=== PATIENT | female | born 1930 | race Caucasian/White ===

== ENCOUNTER 2017-12-25 13:00 | Inpatient (IN) | payer MEDICARE, BC ==
[2017-12-25] MEDS ORDERED: RX INFO: IV CONTRAST WAS GIVEN 1 EACH MISC MISCELLANE PRN (13:27)
[2017-12-25] MEDS ORDERED: SODIUM CHLORIDE 0.9% 500 ML IV STA (13:27)
--- NOTE | 2017-12-25 13:28 | ED ---
Abdominal Pain HPI - General Chief Complaint: Abdominal Pain Stated Complaint: constipation Time Seen by Provider: 12/25/17 13:11 Source: patient Mode of arrival: ambulatory Limitations: no limitations - History of Present Illness Initial Comments: Patient complains of abdominal pain. The pain is all over her belly. The pain began 3-1/2 days ago. It is getting worse. She feels like she can't tolerate oral intake. She has decreased bowel movements. She had a recent UTI. She is not currently taking antibodies. She has no back or chest pain. She has no shortness of breath. She has no headache. She has no palpitations. She has used a fleets enema, which did not really change her symptoms. - Related Data Home Medications Medication Instructions Recorded Confirmed Aspirin 81 mg PO DAILY 12/15/13 12/25/17 Hydrochlorothiazide [Hydrodiuril] 25 mg PO DAILY 12/15/13 12/25/17 Losartan Potassium [Cozaar] 100 mg PO DAILY 12/15/13 12/25/17 Metoprolol Succinate [Toprol XL] 50 mg PO AC-BRKFST 12/15/13 12/25/17 Simvastatin [Zocor] 40 mg PO HS 12/15/13 12/25/17 Temazepam [Restoril] 30 mg PO HS 12/15/13 12/25/17 Docusate [Colace] 100 mg PO HS 12/25/17 12/25/17 Vit C/E/Zn/Coppr/Lutein/Zeaxan 1 cap PO BID 12/25/17 12/25/17 [Preservision Areds 2 Softgel] Allergies Allergy/AdvReac Type Severity Reaction Status Date / Time dexamethasone [From Decadron] Allergy Itching Verified 12/25/17 13:07 dexamethasone sod phosphate Allergy Itching Verified 12/25/17 13:07 [From Decadron] diclofenac [From Voltaren] Allergy Unknown Verified 12/25/17 13:22 hydroxyzine HCl [From Atarax] Allergy Itching Verified 12/25/17 13:07 ibuprofen [From Motrin] Allergy Itching Verified 12/25/17 13:07 lisinopril Allergy Itching Verified 12/25/17 13:07 Sulfa (Sulfonamide Allergy Itching Verified 12/25/17 13:07 Antibiotics) nitrofurantoin AdvReac "DOES NOT Verified 12/25/17 13:22 WORK" Review of Systems ROS Statement: Those systems with pertinent positive or pertinent negative responses have been documented in the HPI. ROS Other: All systems not noted in ROS Statement are negative. Past Medical History Past Medical History: CVA/TIA, Eye Disorder, Hyperlipidemia, Hypertension, Musculoskeletal Disorder, Osteoarthritis (OA) Additional Past Medical History / Comment(s): macular degeneration, wet left, dry right, scoliosis, arthritis, Tia 1988 History of Any Multi-Drug Resistant Organisms: None Reported Past Surgical History: Back Surgery, Joint Replacement Additional Past Surgical History / Comment(s): Total left knee, partial right knee, right great toe implant, multiple cervical and lumbar fusions, kyphoplasty Past Anesthesia/Blood Transfusion Reactions: No Reported Reaction Past Psychological History: Anxiety Smoking Status: Never smoker Past Alcohol Use History: None Reported Past Drug Use History: None Reported General Exam Limitations: no limitations General appearance: alert, in no apparent distress Head exam: Present: atraumatic, normocephalic, normal inspection Eye exam: Present: normal appearance, PERRL, EOMI. Absent: scleral icterus, conjunctival injection, periorbital swelling ENT exam: Present: normal exam, mucous membranes moist Neck exam: Present: normal inspection. Absent: tenderness, meningismus, lymphadenopathy Respiratory exam: Present: normal lung sounds bilaterally. Absent: respiratory distress, wheezes, rales, rhonchi, stridor Cardiovascular Exam: Present: regular rate, normal rhythm, normal heart sounds. Absent: systolic murmur, diastolic murmur, rubs, gallop, clicks GI/Abdominal exam: Present: soft, tenderness. Absent: distended, guarding, rebound, rigid Extremities exam: Present: normal inspection, full ROM, normal capillary refill. Absent: tenderness, pedal edema, joint swelling, calf tenderness Back exam: Present: normal inspection Neurological exam: Present: alert, oriented X3, CN II-XII intact Psychiatric exam: Present: normal affect, normal mood Skin exam: Present: warm, dry, intact, normal color. Absent: rash Course Vital Signs 12/25/17 12/25/17 13:03 14:59 Temperature 98 F Pulse Rate 69 65 Respiratory 18 17 Rate Blood Pressure 155/72 145/67 O2 Sat by Pulse 98 100 Oximetry Medical Decision Making - Medical Decision Making Patient states that she is not feeling well. Urinalysis is positive for infection. She has failed outpatient therapy. I will order IV antibiotics and patient will be admitted to the hospital. - Lab Data Result diagrams: 12/25/17 13:20 12/25/17 13:20 Lab Results 12/25/17 12/25/17 12/25/17 Range/Units 13:20 13:20 13:20 WBC 5.0 (3.8-10.6) k/uL RBC 3.99 (3.80-5.40) m/uL Hgb 12.6 (11.4-16.0) gm/dL Hct 36.5 (34.0-46.0) % MCV 91.5 (80.0-100.0) fL MCH 31.5 (25.0-35.0) pg MCHC 34.5 (31.0-37.0) g/dL RDW 12.4 (11.5-15.5) % Plt Count 227 (150-450) k/uL Neutrophils % 65 % Lymphocytes % 21 % Monocytes % 8 % Eosinophils % 2 % Basophils % 0 % Neutrophils # 3.2 (1.3-7.7) k/uL Lymphocytes # 1.1 (1.0-4.8) k/uL Monocytes # 0.4 (0-1.0) k/uL Eosinophils # 0.1 (0-0.7) k/uL Basophils # 0.0 (0-0.2) k/uL Sodium 134 L (137-145) mmol/L Potassium 4.4 (3.5-5.1) mmol/L Chloride 92 L (98-107) mmol/L Carbon Dioxide 29 (22-30) mmol/L Anion Gap 13 mmol/L BUN 35 H (7-17) mg/dL Creatinine 1.07 H (0.52-1.04) mg/dL Est GFR (CKD-EPI)AfAm 54 (>60 ml/min/1.73 sqM) Est GFR (CKD-EPI)NonAf 47 (>60 ml/min/1.73 sqM) Glucose 120 H (74-99) mg/dL Calcium 10.6 H (8.4-10.2) mg/dL Total Bilirubin 0.6 (0.2-1.3) mg/dL AST 34 (14-36) U/L ALT 40 (9-52) U/L Alkaline Phosphatase 94 (38-126) U/L Troponin I <0.012 (0.000-0.034) ng/mL Total Protein 7.1 (6.3-8.2) g/dL Albumin 4.3 (3.5-5.0) g/dL Amylase 132 H (30-110) U/L Lipase 407 H (23-300) U/L Urine Color Urine Appearance (Clear) Urine pH (5.0-8.0) Ur Specific [place] (1.001-1.035) Urine Protein (Negative) Urine Glucose (UA) (Negative) Urine Ketones (Negative) Urine Blood (Negative) Urine Nitrite (Negative) Urine Bilirubin (Negative) Urine Urobilinogen (<2.0) mg/dL Ur Leukocyte Esterase (Negative) Urine RBC (0-5) /hpf Urine WBC (0-5) /hpf Ur Squamous Epith Cells (0-4) /hpf Hyaline Casts (0-2) /lpf Urine Mucus (None) /hpf 12/25/17 Range/Units 13:20 WBC (3.8-10.6) k/uL RBC (3.80-5.40) m/uL Hgb (11.4-16.0) gm/dL Hct (34.0-46.0) % MCV (80.0-100.0) fL MCH (25.0-35.0) pg MCHC (31.0-37.0) g/dL RDW (11.5-15.5) % Plt Count (150-450) k/uL Neutrophils % % Lymphocytes % % Monocytes % % Eosinophils % % Basophils % % Neutrophils # (1.3-7.7) k/uL Lymphocytes # (1.0-4.8) k/uL Monocytes # (0-1.0) k/uL Eosinophils # (0-0.7) k/uL Basophils # (0-0.2) k/uL Sodium (137-145) mmol/L Potassium (3.5-5.1) mmol/L Chloride (98-107) mmol/L Carbon Dioxide (22-30) mmol/L Anion Gap mmol/L BUN (7-17) mg/dL Creatinine (0.52-1.04) mg/dL Est GFR (CKD-EPI)AfAm (>60 ml/min/1.73 sqM) Est GFR (CKD-EPI)NonAf (>60 ml/min/1.73 sqM) Glucose (74-99) mg/dL Calcium (8.4-10.2) mg/dL Total Bilirubin (0.2-1.3) mg/dL AST (14-36) U/L ALT (9-52) U/L Alkaline Phosphatase (38-126) U/L Troponin I (0.000-0.034) ng/mL Total Protein (6.3-8.2) g/dL Albumin (3.5-5.0) g/dL Amylase (30-110) U/L Lipase (23-300) U/L Urine Color Light Yellow Urine Appearance Clear (Clear) Urine pH 7.0 (5.0-8.0) Ur Specific [place] 1.008 (1.001-1.035) Urine Protein Negative (Negative) Urine Glucose (UA) Negative (Negative) Urine Ketones Negative (Negative) Urine Blood Negative (Negative) Urine Nitrite Negative (Negative) Urine Bilirubin Negative (Negative) Urine Urobilinogen <2.0 (<2.0) mg/dL Ur Leukocyte Esterase Moderate H (Negative) Urine RBC <1 (0-5) /hpf Urine WBC 4 (0-5) /hpf Ur Squamous Epith Cells <1 (0-4) /hpf Hyaline Casts 7 H (0-2) /lpf Urine Mucus Rare H (None) /hpf 12/25/17 15:43 Twelve-lead EKG shows ventricular rate 69 bpm, normal OH interval and QRS complexes, no ST elevation or depression, interpreted by me as normal sinus rhythm. Disposition Clinical Impression: UTI (urinary tract infection) Disposition: ADMITTED IP TO THIS HOSP Condition: Fair Is patient prescribed a controlled substance at d/c from ED?: No Referrals: Jessica Umanzor DO [Primary Care Provider] - 1-2 days Time of Disposition: 15:44
[2017-12-25 13:37] LABS: Basophils % (A) 0 %; Eosinophils # (A) 0.1 k/uL (0-0.7); Eosinophils % (A) 2 %; HCT 36.5 % (34.0-46.0); HGB 12.6 gm/dL (11.4-16.0); Lymphocytes # (A) 1.1 k/uL (1.0-4.8); Lymphocytes % (A) 21 %; MCH 31.5 pg (25.0-35.0); MCHC 34.5 g/dL (31.0-37.0); MCV 91.5 fL (80.0-100.0); Monocytes # (A) 0.4 k/uL (0-1.0); Monocytes % (A) 8 %; Neutrophils # (A) 3.2 k/uL (1.3-7.7); Neutrophils % (A) 65 %; Platelet Count 227 k/uL (150-450); RBC 3.99 m/uL (3.80-5.40); RDW 12.4 % (11.5-15.5)
[2017-12-25 13:46] LABS: Albumin 4.3 g/dL (3.5-5.0); Calcium 10.6 mg/dL (8.4-10.2); Potassium 4.4 mmol/L (3.5-5.1); Total Bilirubin 0.6 mg/dL (0.2-1.3); Total Protein 7.1 g/dL (6.3-8.2)
[2017-12-25 14:14] LABS: Appearance,Urine Clear (Clear); Bilirubin,Urine Negative (Negative); Blood,Urine Negative (Negative); Color,Urine Light Yellow; Glucose,Urine (UA) Negative (Negative); Hyaline Casts,Urine 7 /lpf (0-2); Ketones,Urine Negative (Negative); Leukocyte Esterase,Urine Moderate (Negative); Mucus,Urine Rare /hpf; Nitrite,Urine Negative (Negative); Protein,Urine Negative (Negative); RBC,Urine <1 /hpf (0-5); Specific Gravity,Urine 1.008 (1.001-1.035); Squamous Epithelial Cell,Urine <1 /hpf (0-4); Urobilinogen,Urine <2.0 mg/dL (<2.0); WBC,Urine 4 /hpf (0-5)
--- NOTE | 2017-12-25 14:30 | CT ---
EXAMINATION TYPE: CT abdomen pelvis wo con DATE OF EXAM: 12/25/2017 COMPARISON: 07/04/2016 HISTORY: c/o abdominal pain, bloating, constipation CT DLP: 686 mGycm Automated exposure control for dose reduction was used. TECHNIQUE: Helical acquisition of images was performed from the lung bases through the pelvis. FINDINGS: MISCELLANEOUS: Postop changes are noted to the lumbar spine and pelvis. Generative change of the spin e arthritic change of the hips. Lung bases are clear, there is no pleural or pericardial effusion. Pleural thickening along the left lung base suggestive findings suggestive of COPD and mild cardiomegaly with a trace amount of pericar dial fluid. The heart is enlarged. Calcification present at the aortic root, possible coronary artery calcification. There is a hiatal hernia. ABDOMEN: Lack of intravenous contrast may compromise sensitivity. There is no pneumoperitoneum, retro peritoneal adenopathy, or ascites. Aorta shows normal caliber. The liver, gallbladder, spleen , pancreas, adrenal glands are within normal limits, the left kidney s hows malrotation. Right kidney shows a cystic low-attenuation focus at the lower pole measuring 18 mm a cortical cyst i s stable from previous exam and appears 5 Hounsfield units compatible simple cyst. No hydronephrosis bilaterally. No ureteral calcification is evident. There is a calcification in the splenic hilum measuring only 5 mm which may be vascular or associated with the tail of the pancreas. PELVIS: There is no bowel obstruction. Urinary bladder is normal as seen. There are vascular calcific ations present. Uterus and adnexal structures are not seen. Diverticular change associated with the s igmoid colon. The appendix is not seen with certainty. IMPRESSION: 1. Nonspecific abdomen.
[2017-12-25] MEDS: cefTRIAXone IN SWFI 1,000 MG/10 ML SYRINGE IVP SCH (15:39)
[2017-12-25] MEDS ORDERED: ACETAMINOPHEN TAB 325 MG TAB PO PRN (16:24)
[2017-12-25] MEDS ORDERED: HYDROcodone/APAP 5-325MG 1 EACH TAB PO PRN (16:27)
--- NOTE | 2017-12-25 16:39 | P.HPIM ---
History of Present Illness H&P Date: 12/25/17 Chief Complaint: Abdominal pain 87-year-old female who has been struggling with urinary tract infection for the last 2 weeks, has been on 2 different courses of antibiotics presented to emergency department with worsening symptoms of nausea, abdominal bloating/ pressure and pain. She denied any vomiting. She stated that since Thursday she has not had any bowel movement and that she is constipated. She has used a fleets enema, which did not really change her symptoms. The pain is all over her belly. She has been feeling cold since he started having those symptoms. No fevers. No chest pain or shortness of breath. She feels like she can't tolerate oral intake, has no appetite. Of note patient fell in October, she had her head on the cement, the fall was mechanical secondary to stumbling and since the fall she has been having dizziness. No headache. She has no palpitations. Review of Systems 12 point review of system performed, negative except for HPI Past Medical History Past Medical History: CVA/TIA, Eye Disorder, Hyperlipidemia, Hypertension, Musculoskeletal Disorder, Osteoarthritis (OA) Additional Past Medical History / Comment(s): macular degeneration, wet left, dry right, scoliosis, arthritis, Tia 1987 History of Any Multi-Drug Resistant Organisms: None Reported Past Surgical History: Back Surgery, Joint Replacement Additional Past Surgical History / Comment(s): Total left knee, partial right knee, right great toe implant, multiple cervical and lumbar fusions, kyphoplasty Past Anesthesia/Blood Transfusion Reactions: No Reported Reaction Past Psychological History: Anxiety Smoking Status: Never smoker Past Alcohol Use History: None Reported Past Drug Use History: None Reported Medications and Allergies Home Medications Medication Instructions Recorded Confirmed Type Aspirin 81 mg PO DAILY 12/15/13 12/25/17 History Hydrochlorothiazide [Hydrodiuril] 25 mg PO DAILY 12/15/13 12/25/17 History Losartan Potassium [Cozaar] 100 mg PO DAILY 12/15/13 12/25/17 History Metoprolol Succinate [Toprol XL] 50 mg PO AC-BRKFST 12/15/13 12/25/17 History Simvastatin [Zocor] 40 mg PO HS 12/15/13 12/25/17 History Temazepam [Restoril] 30 mg PO HS 12/15/13 12/25/17 History Docusate [Colace] 100 mg PO HS 12/25/17 12/25/17 History Vit C/E/Zn/Coppr/Lutein/Zeaxan 1 cap PO BID 12/25/17 12/25/17 History [Preservision Areds 2 Softgel] Allergies Allergy/AdvReac Type Severity Reaction Status Date / Time dexamethasone [From Decadron] Allergy Itching Verified 12/25/17 13:07 dexamethasone sod phosphate Allergy Itching Verified 12/25/17 13:07 [From Decadron] diclofenac [From Voltaren] Allergy Unknown Verified 12/25/17 13:22 hydroxyzine HCl [From Atarax] Allergy Itching Verified 12/25/17 13:07 ibuprofen [From Motrin] Allergy Itching Verified 12/25/17 13:07 lisinopril Allergy Itching Verified 12/25/17 13:07 Sulfa (Sulfonamide Allergy Itching Verified 12/25/17 13:07 Antibiotics) nitrofurantoin AdvReac "DOES NOT Verified 12/25/17 13:22 WORK" Physical Exam Vitals: Vital Signs Temp Pulse Resp BP Pulse Ox 12/25/17 16:04 98.1 F 67 17 147/62 100 12/25/17 14:59 65 17 145/67 100 12/25/17 13:03 98 F 69 18 155/72 98 Intake and Output 12/25/17 12/25/17 12/25/17 06:59 14:59 22:59 Other: Weight 68.039 kg Constitutional: No acute distress, conversant, pleasant Eyes:Anicteric sclerae, moist conjunctiva, no lid-lag, PERRLA, ENMT: Oropharynx clear, no erythema, exudates Neck: Supple, FROM, no masses, or JVD, No carotid bruits, No thyromegaly Lungs: Clear to auscultation, Clear to percussion, Normal respiratory effort, no accessory muscle use Cardiovascular: Heart regular in rate and rhythm, No murmurs, gallops, or rubs, No peripheral edema Abdominal: Soft, diffusely tender, no guarding, rebound or rigidity, Normoactive bowel sounds, No hepatomegaly, No splenomegaly, No palpable mass Skin: Normal temperature, tone, texture, turgor, no induration, No subcutaneous nodules, No rash, lesions, No ulcers Extremities: No digital cyanosis, No clubbing, Pedal pulses intact and symmetrical, Radial pulses intact and symmetrical, No calf tenderness Psychiatric: Alert and oriented to person, place and time, appropriate affect, intact judgement Neuro: Muscles Strength 5/5 in all 4 extremities, Sensation to light touch grossly present throughout, Cranial nerves II-XII grossly intact, no focal sensory deficits Results CBC & Chem 7: 12/25/17 13:20 12/25/17 13:20 Labs: Abnormal Lab Results - Last 24 Hours (Table) 12/25/17 12/25/17 Range/Units 13:20 13:20 Sodium 134 L (137-145) mmol/L Chloride 92 L (98-107) mmol/L BUN 35 H (7-17) mg/dL Creatinine 1.07 H (0.52-1.04) mg/dL Glucose 120 H (74-99) mg/dL Calcium 10.6 H (8.4-10.2) mg/dL Amylase 132 H (30-110) U/L Lipase 407 H (23-300) U/L Ur Leukocyte Esterase Moderate H (Negative) Hyaline Casts 7 H (0-2) /lpf Urine Mucus Rare H (None) /hpf Assessment and Plan Plan: #1 Urinary tract infection, failed outpatient treatment Start ceftriaxone 1 g IV daily Urine and blood cultures He was B[place] for pain and discomfort #2 Constipation She is already on docusate at home, we'll add MiraLAX and senna especially that she will be on [place]. #3 Recent fall She was not worked up with any imaging, will order a head CT scan to rule out intracranial hemorrhage #4 Hyperlipidemia, Hypertension, Osteoarthritis (OA): Stable Resume all medications
[2017-12-25 17:18] VITALS: BMI 28.3
[2017-12-25] MEDS: SODIUM CHLORIDE 0.9% 1,000 ML IV SCH (17:36)
--- NOTE | 2017-12-25 19:01 | CT ---
EXAMINATION TYPE: CT brain wo con DATE OF EXAM: 12/25/2017 COMPARISON: NONE HISTORY: DIZZINESS CT DLP: 873.1 mGycm Automated exposure control for dose reduction was used. FINDINGS: There is some cerebral cortical atrophy. There is no mass effect nor midline shift. There is no sign of intracranial hemorrhage. There is some white matter hypodensity is more noticeable in the left occ ipital lobe and both frontal lobes. Calvarium is intact. There is some mucosal thickening in the ethm oid sinus. IMPRESSION: CEREBRAL ATROPHY AND WHITE MATTER CHANGES CONSISTENT WITH CHRONIC SMALL VESSEL ISCHEMIA. NO ACUTE INT RACRANIAL ABNORMALITY. MILD ETHMOID SINUSITIS.
[2017-12-25] MEDS: TEMAZEPAM 15 MG CAP PO SCH (20:32)
[2017-12-25] MEDS: DOCUSATE 100 MG CAP PO SCH (20:32)
[2017-12-25] MEDS: ATORVASTATIN 20 MG TAB PO SCH (20:32)
[2017-12-25] MEDS: SENNOSIDES 8.6 MG TAB PO SCH (20:33)
[2017-12-26] MEDS: ONDANSETRON 4 MG/2 ML VIAL IVP PRN ×2 (06:22→18:11)
[2017-12-26 07:24] LABS: Basophils % (A) 0 %; Eosinophils # (A) 0.3 k/uL (0-0.7); Eosinophils % (A) 6 %; HCT 34.1 % (34.0-46.0); HGB 11.2 gm/dL (11.4-16.0); Lymphocytes # (A) 1.5 k/uL (1.0-4.8); Lymphocytes % (A) 31 %; MCH 30.9 pg (25.0-35.0); MCHC 32.8 g/dL (31.0-37.0); MCV 94.1 fL (80.0-100.0); Monocytes # (A) 0.4 k/uL (0-1.0); Monocytes % (A) 9 %; Neutrophils # (A) 2.5 k/uL (1.3-7.7); Neutrophils % (A) 52 %; Platelet Count 199 k/uL (150-450); RBC 3.62 m/uL (3.80-5.40); RDW 12.7 % (11.5-15.5); WBC 4.8 k/uL (3.8-10.6)
[2017-12-26 07:31] LABS: Albumin 3.5 g/dL (3.5-5.0); Calcium 9.6 mg/dL (8.4-10.2); Magnesium 1.9 mg/dL (1.6-2.3); Phosphorus 2.6 mg/dL (2.5-4.5); Potassium 3.7 mmol/L (3.5-5.1); Total Bilirubin 0.4 mg/dL (0.2-1.3); Total Protein 5.9 g/dL (6.3-8.2)
[2017-12-26] MEDS: LOSARTAN 50 MG TAB PO SCH (08:15)
[2017-12-26] MEDS: SENNOSIDES 8.6 MG TAB PO SCH ×2 (08:15→20:44)
[2017-12-26] MEDS: METOPROLOL SUCCINATE (ER) 50 MG TAB.ER.24H PO SCH (08:16)
[2017-12-26] MEDS: DOCUSATE 100 MG CAP PO SCH ×2 (08:16→20:44)
[2017-12-26] MEDS: ASPIRIN 81 MG PO SCH (08:16)
[2017-12-26] MEDS: POLYETHYLENE GLYCOL 3350 17 GM POWD.PACK PO SCH (08:16)
[2017-12-26] MEDS: SODIUM CHLORIDE 0.9% 1,000 ML IV SCH (08:19)
[2017-12-26] MEDS ORDERED: cefTRIAXone IN SWFI 1,000 MG/10 ML SYRINGE IVP SCH (09:00)
[2017-12-26] MEDS ORDERED: BISACODYL 10 MG SUPP RECTAL STA (15:16)
--- NOTE | 2017-12-26 15:21 | P.PN ---
Subjective Progress Note Date: 12/26/17 Principal diagnosis: Constipation/UTI/Failure to thrive Patient still did not have any bowel movement, she feels that the food gets stuck in her chest and that she is full despite only taking a few bites. Still having abdominal discomfort especially in the right upper quadrant. Objective - Vital Signs Vital signs: Vital Signs Temp 98.2 F 12/26/17 05:03 Pulse 64 12/26/17 08:30 Resp 16 12/26/17 08:30 BP 132/60 12/26/17 05:03 Pulse Ox 98 12/26/17 05:03 Intake & Output 12/25/17 12/26/17 12/26/17 18:59 06:59 18:59 Intake Total 240 Balance 240 Weight 68.039 kg 68.039 kg Intake: Oral 240 Other: Voiding Method Toilet Toilet # Voids 2 4 - Exam Constitutional: No acute distress, conversant, pleasant Eyes:Anicteric sclerae, moist conjunctiva, no lid-lag, PERRLA, ENMT: Oropharynx clear, no erythema, exudates Neck: Supple, FROM, no masses, or JVD, No carotid bruits, No thyromegaly Lungs: Clear to auscultation, Clear to percussion, Normal respiratory effort, no accessory muscle use Cardiovascular: Heart regular in rate and rhythm, No murmurs, gallops, or rubs, No peripheral edema Abdominal: Soft, right upper quadrant tender, no guarding, rebound or rigidity, Normoactive bowel sounds, No hepatomegaly, No splenomegaly, No palpable mass Skin: Normal temperature, tone, texture, turgor, no induration, No subcutaneous nodules, No rash, lesions, No ulcers Extremities: No digital cyanosis, No clubbing, Pedal pulses intact and symmetrical, Radial pulses intact and symmetrical, No calf tenderness Psychiatric: Alert and oriented to person, place and time, appropriate affect, intact judgement Neuro: Muscles Strength 5/5 in all 4 extremities, Sensation to light touch grossly present throughout, Cranial nerves II-XII grossly intact, no focal sensory deficits - Labs CBC & Chem 7: 12/26/17 06:47 12/26/17 06:47 Labs: Abnormal Lab Results - Last 24 Hours (Table) 12/26/17 12/26/17 Range/Units 06:47 06:47 RBC 3.62 L (3.80-5.40) m/uL Hgb 11.2 L (11.4-16.0) gm/dL BUN 22 H (7-17) mg/dL Total Protein 5.9 L (6.3-8.2) g/dL Microbiology - Last 24 Hours (Table) 12/25/17 13:20 Urine Culture - Preliminary Urine,Clean Catch Assessment and Plan Plan: #1 Urinary tract infection, failed outpatient treatment Continue ceftriaxone 1 g IV daily Urine culture still pending #2 Abdominal pain, right upper quadrant Check right upper quadrant ultrasound rule out gallstones/cholecystitis #3 Constipation Continue laxatives, add Dulcolax suppository #3 Recent fall Checked head CT scan --- negative for any bleeding #4 Hyperlipidemia, Hypertension, Osteoarthritis (OA): Stable Resume all medications
[2017-12-26] MEDS: cefTRIAXone IN SWFI 1,000 MG/10 ML SYRINGE IVP SCH (16:39)
[2017-12-26] MEDS: TEMAZEPAM 15 MG CAP PO SCH (20:44)
[2017-12-26] MEDS: ATORVASTATIN 20 MG TAB PO SCH (20:44)
[2017-12-26 23:39] VITALS: RESP 16; TEMP 98
[2017-12-27] MEDS: SODIUM CHLORIDE 0.9% 1,000 ML IV SCH (04:06)
[2017-12-27] MEDS: ONDANSETRON 4 MG/2 ML VIAL IVP PRN ×2 (04:06→08:23)
[2017-12-27 06:36] VITALS: BP 126/83; PULSE 74
[2017-12-27] MEDS: POLYETHYLENE GLYCOL 3350 17 GM POWD.PACK PO SCH ×2 (07:33→08:24)
--- NOTE | 2017-12-27 08:14 | US ---
EXAMINATION TYPE: US abdomen limited DATE OF EXAM: 12/27/2017 COMPARISON: CT 12/25/2017 CLINICAL HISTORY: RUQ pain. Constipation EXAM MEASUREMENTS: Liver Length: 12.9 cm Gallbladder Wall: 0.2 cm CBD: 0.5 cm Right Kidney: 9.7 x 4.2 x 5.0 cm Pancreas: Obscured by bowel gas Liver: wnl Gallbladder: wnl Evidence for sonographic Cotto's sign: No CBD: wnl Right Kidney: No hydronephrosis. Cyst visualized lower pole measuring 1.8 cm Limited views of the pancreas are unremarkable. The liver is normal in size without biliary dilatation. The gallbladder is normal. The gallbladder wall measures 2 mm. The distal common hepatic duct measure s 5 mm. There is no sonographic Cotto's sign. There is a simple appearing 1.9 cm cyst arising from the lower pole of the right kidney. IMPRESSION: CYSTIC CHANGE, RIGHT KIDNEY.
[2017-12-27] MEDS: LOSARTAN 50 MG TAB PO SCH (08:24)
[2017-12-27] MEDS: ASPIRIN 81 MG PO SCH (08:24)
[2017-12-27] MEDS: DOCUSATE 100 MG CAP PO SCH (08:24)
[2017-12-27] MEDS: METOPROLOL SUCCINATE (ER) 50 MG TAB.ER.24H PO SCH (08:25)
[2017-12-27] MEDS: SENNOSIDES 8.6 MG TAB PO SCH (08:25)
--- NOTE | 2017-12-27 11:55 | P.DS ---
Providers Date of admission: 12/25/17 15:45 Expected date of discharge: 12/27/17 Attending physician: Clementina Casas MD Primary care physician: Jessica Umanzor [facility] Course: 87-year-old female who has been struggling with urinary tract infection and constipation for the last 2 weeks, has been on 2 different courses of antibiotics presented to emergency department with worsening symptoms of nausea , abdominal bloating/pressure and pain. She denied any vomiting. She stated that for several days she has not had any bowel movement and that she is constipated. She has used a fleets enema, which did not really change her symptoms. The pain is all over her belly. She has been feeling cold since he started having those symptoms. No fevers. No chest pain or shortness of breath. She feels like she can't tolerate oral intake, has no appetite. Of note patient fell in October, she had her head on the cement, the fall was mechanical secondary to stumbling and since the fall she has been having dizziness. No headache. She has no palpitations. In the emergency department patient was extensively evaluated, her vital signs are all within normal limits. Exam was significant for abdominal tenderness. Laboratory findings were significant for slight dehydration, mildly elevated amylase and lipase but without meeting criteria for acute pancreatitis. Computed tomography scan of the abdomen and pelvis was done in the emergency department and that was pretty much unremarkable. Because of constant pain, vomiting I ordered right upper quadrant ultrasound and that did not show any evidence of gallbladder disease. It was thought that patient's symptoms were mainly due to recent UTI in addition to significant constipation. She was started on symptomatic treatment with Zofran, senna, MiraLAX, docusate. She was also given some Dulcolax suppository. This morning she had a bowel movement and symptoms started to improve. For the UTI she was treated with ceftriaxone 1 g IV daily. Because patient fell in October and her daughter had had a head CT scan that did not show any acute intracranial abnormality. Patient be discharged home in a stable condition. She was instructed to follow-up with her primary care physician after discharge. He was also told to eat a lot of vegetables and fruits and drinks lots of water. Patient Condition at Discharge: Fair Plan - Discharge Summary New Discharge Prescriptions: New Acetaminophen Tab [Tylenol] 650 mg PO Q6HR PRN tab PRN Reason: Mild Pain Or Fever > 100.5 Ondansetron [Zofran] 4 mg PO Q8HR PRN #30 tab PRN Reason: Nausea And Vomiting Polyethylene Glycol 3350 [Miralax] 17 gm PO DAILY #30 powd.pack Sennosides [Senokot] 8.6 mg PO BID #30 tab Bisacodyl [Dulcolax] 10 mg RECTAL DAILY PRN #30 supp PRN Reason: Constipation Continue Metoprolol Succinate [Toprol XL] 50 mg PO AC-BRKFST Losartan Potassium [Cozaar] 100 mg PO DAILY Temazepam [Restoril] 30 mg PO HS Simvastatin [Zocor] 40 mg PO HS Aspirin 81 mg PO DAILY Hydrochlorothiazide [Hydrodiuril] 25 mg PO DAILY Docusate [Colace] 100 mg PO HS Vit C/E/Zn/Coppr/Lutein/Zeaxan [Preservision Areds 2 Softgel] 1 cap PO BID Discharge Medication List Aspirin 81 mg PO DAILY 12/15/13 [History] Hydrochlorothiazide [Hydrodiuril] 25 mg PO DAILY 12/15/13 [History] Losartan Potassium [Cozaar] 100 mg PO DAILY 12/15/13 [History] Metoprolol Succinate [Toprol XL] 50 mg PO AC-BRKFST 12/15/13 [History] Simvastatin [Zocor] 40 mg PO HS 12/15/13 [History] Temazepam [Restoril] 30 mg PO HS 12/15/13 [History] Docusate [Colace] 100 mg PO HS 12/25/17 [History] Vit C/E/Zn/Coppr/Lutein/Zeaxan [Preservision Areds 2 Softgel] 1 cap PO BID 12/25 [History] Acetaminophen Tab [Tylenol] 650 mg PO Q6HR PRN tab 12/27/17 [Rx] Bisacodyl [Dulcolax] 10 mg RECTAL DAILY PRN #30 supp 12/27/17 [Rx] Ondansetron [Zofran] 4 mg PO Q8HR PRN #30 tab 12/27/17 [Rx] Polyethylene Glycol 3350 [Miralax] 17 gm PO DAILY #30 powd.pack 12/27/17 [Rx] Sennosides [Senokot] 8.6 mg PO BID #30 tab 12/27/17 [Rx] Follow up Appointment(s)/Referral(s): Jessica Umanzor DO [Primary Care Provider] - 1-2 days
== END 2017-12-27 14:40 | disposition home or self-care (01) | DRG 690 ==
LOC: EC 13:00 → 5MS5E 15:45
PROVIDERS: ADMIT Internal Medicine; ATTEND Internal Medicine
DX: N39.0 Urinary tract infection, site not specified (principal); K59.00 Constipation, unspecified; E78.5 Hyperlipidemia, unspecified; F41.9 Anxiety disorder, unspecified; I10 Essential (primary) hypertension; M19.90 Unspecified osteoarthritis, unspecified site; M41.9 Scoliosis, unspecified; R62.7 Adult failure to thrive; Z79.82 Long term (current) use of aspirin; Z86.73 Personal history of transient ischemic attack (TIA), and cerebral infarction without residual deficits; Z91.81 History of falling; Z96.653 Presence of artificial knee joint, bilateral; Z98.1 Arthrodesis status; Z96.698 Presence of other orthopedic joint implants; Z79.899 Other long term (current) drug therapy; Z88.6 Allergy status to analgesic agent; Z88.2 Allergy status to sulfonamides; Z88.8 Allergy status to other drugs, medicaments and biological substances; R42 Dizziness and giddiness
CPT/HCPCS: 36415; 70450; 74176; 76705; 80053; 81001; 82150; 83690; 83735; 84100; 84484; 85025; 87040; 87086; 93005; 96361; 96374; 99285

== ENCOUNTER 2018-01-03 11:52 | Inpatient (IN) | payer MEDICARE, BC ==
[2018-01-03] MEDS ORDERED: PANTOPRAZOLE 40 MG/10 ML VIAL IVP STA (13:06)
[2018-01-03] MEDS ORDERED: ONDANSETRON 4 MG/2 ML VIAL IVP STA (13:06)
[2018-01-03] MEDS ORDERED: SODIUM CHLORIDE 0.9% 1,000 ML IV STA ×2 (13:06)
[2018-01-03 13:18] LABS: Appearance,Urine Clear (Clear); Bilirubin,Urine Negative (Negative); Blood,Urine Negative (Negative); Color,Urine Yellow; Glucose,Urine (UA) Negative (Negative); Hyaline Casts,Urine 3 /lpf (0-2); Ketones,Urine Negative (Negative); Leukocyte Esterase,Urine Large (Negative); Mucus,Urine Rare /hpf; Nitrite,Urine Negative (Negative); Protein,Urine Negative (Negative); RBC,Urine <1 /hpf (0-5); Specific Gravity,Urine 1.011 (1.001-1.035); Squamous Epithelial Cell,Urine <1 /hpf (0-4); Urobilinogen,Urine <2.0 mg/dL (<2.0); WBC,Urine 3 /hpf (0-5)
[2018-01-03 13:43] LABS: Basophils % (A) 0 %; Eosinophils % (A) 1 %; Lymphocytes # (A) 0.9 k/uL (1.0-4.8); Lymphocytes % (A) 20 %; MCHC 34.3 g/dL (31.0-37.0); MCV 93.3 fL (80.0-100.0); Mean Platelet Volume 6.8; Monocytes # (A) 0.4 k/uL (0-1.0); Monocytes % (A) 8 %; Neutrophils # (A) 3.2 k/uL (1.3-7.7); Neutrophils % (A) 69 %; Platelet Count 220 k/uL (150-450); RBC 3.75 m/uL (3.80-5.40); RDW 12.8 % (11.5-15.5); WBC 4.6 k/uL (3.8-10.6)
--- NOTE | 2018-01-03 13:46 | XR ---
EXAMINATION TYPE: XR KUB DATE OF EXAM: 01/03/2018 CLINICAL DATA: 87-year-old female with abdominal pain, [facility] COMPARISON: None FINDINGS: Heart is enlarged. Suspected calcified granuloma in the right lower lung. Vertebroplasty change T11. No evidence for free intraperitoneal air. No dilated small bowel or air-fluid levels. Moderate stool burden. Multiple pelvic lymph nodes. IMPRESSION: 1. No evidence for free air or bowel obstruction. Moderate stool burden. 2. Suspected calcified granuloma at the right lower lung. Recommend 3 month follow-up chest x-ray to reassess.
[2018-01-03 13:56] LABS: Albumin 4.4 g/dL (3.5-5.0); Calcium 10.4 mg/dL (8.4-10.2); Potassium 4.3 mmol/L (3.5-5.1); Total Bilirubin 0.4 mg/dL (0.2-1.3)
--- NOTE | 2018-01-03 15:07 | ED ---
Abdominal Pain HPI <SarahAbisai - Last Filed: 01/03/18 16:06> - General Source: patient, RN notes reviewed, old records reviewed Mode of arrival: ambulatory Limitations: no limitations <NancyBelinda - Last Filed: 01/03/18 16:09> - General Chief Complaint: Abdominal Pain Stated Complaint: Poss UTI/Constipation Time Seen by Provider: 01/03/18 12:47 - History of Present Illness Initial Comments: Patient is a 87-year-old feel presents emergency Department chief complaint of lower abdominal fullness and tenderness. She states that she has been using enemas and stool softeners and home. She did have a bowel movement yesterday. Patient states that she also complains of acid reflux symptoms and nausea. She states the nausea is not manageable. She reports she's had no fever or chills. She was admitted last week for failed outpatient treatment for UTI. Patient states that she on discharge she was told that she was clear from urinary tract infection. Patient denies any chest pain or shortness of breath. (Belinda Cruz) - Related Data Home Medications Medication Instructions Recorded Confirmed Aspirin 81 mg PO DAILY 12/15/13 12/25/17 Hydrochlorothiazide [Hydrodiuril] 25 mg PO DAILY 12/15/13 12/25/17 Losartan Potassium [Cozaar] 100 mg PO DAILY 12/15/13 12/25/17 Metoprolol Succinate [Toprol XL] 50 mg PO AC-BRKFST 12/15/13 12/25/17 Simvastatin [Zocor] 40 mg PO HS 12/15/13 12/25/17 Temazepam [Restoril] 30 mg PO HS 12/15/13 12/25/17 Docusate [Colace] 100 mg PO HS 12/25/17 12/25/17 Vit C/E/Zn/Coppr/Lutein/Zeaxan 1 cap PO BID 12/25/17 12/25/17 [Preservision Areds 2 Softgel] Previous Rx's Medication Instructions Recorded Acetaminophen Tab [Tylenol] 650 mg PO Q6HR PRN tab 12/27/17 Bisacodyl [Dulcolax] 10 mg RECTAL DAILY PRN #30 supp 12/27/17 Ondansetron [Zofran] 4 mg PO Q8HR PRN #30 tab 12/27/17 Polyethylene Glycol 3350 [Miralax] 17 gm PO DAILY #30 powd.pack 12/27/17 Sennosides [Senokot] 8.6 mg PO BID #30 tab 12/27/17 Allergies Allergy/AdvReac Type Severity Reaction Status Date / Time dexamethasone [From Decadron] Allergy Itching Verified 12/25/17 13:07 dexamethasone sod phosphate Allergy Itching Verified 12/25/17 13:07 [From Decadron] diclofenac [From Voltaren] Allergy Unknown Verified 12/25/17 13:22 hydroxyzine HCl [From Atarax] Allergy Itching Verified 12/25/17 13:07 ibuprofen [From Motrin] Allergy Itching Verified 12/25/17 13:07 lisinopril Allergy Itching Verified 12/25/17 13:07 Sulfa (Sulfonamide Allergy Itching Verified 12/25/17 13:07 Antibiotics) nitrofurantoin AdvReac "DOES NOT Verified 12/25/17 13:22 WORK" Review of Systems ROS Other: All systems not noted in ROS Statement are negative. <Mahesh Smith - Last Filed: 01/03/18 16:06> ROS Other: All systems not noted in ROS Statement are negative. <Belinda Cruz - Last Filed: 01/03/18 16:09> ROS Statement: Those systems with pertinent positive or pertinent negative responses have been documented in the HPI. Past Medical History Past Medical History: CVA/TIA, Eye Disorder, Hyperlipidemia, Hypertension, Musculoskeletal Disorder, Osteoarthritis (OA) Additional Past Medical History / Comment(s): macular degeneration, wet left, dry right, scoliosis, arthritis, Tia 1988 History of Any Multi-Drug Resistant Organisms: None Reported Past Surgical History: Back Surgery, Joint Replacement Additional Past Surgical History / Comment(s): Total left knee, partial right knee, right great toe implant, multiple cervical and lumbar fusions, kyphoplasty Past Anesthesia/Blood Transfusion Reactions: No Reported Reaction Past Psychological History: Anxiety Smoking Status: Never smoker Past Alcohol Use History: None Reported Past Drug Use History: None Reported <Belinda Cruz - Last Filed: 01/03/18 16:09> General Exam <Mahesh Smith - Last Filed: 01/03/18 16:06> Limitations: no limitations General appearance: alert, in no apparent distress Head exam: Present: atraumatic, normocephalic, normal inspection Eye exam: Present: normal appearance, PERRL, EOMI. Absent: scleral icterus, conjunctival injection, periorbital swelling ENT exam: Present: normal exam, mucous membranes moist Neck exam: Present: normal inspection. Absent: tenderness, meningismus, lymphadenopathy Respiratory exam: Present: normal lung sounds bilaterally. Absent: respiratory distress, wheezes, rales, rhonchi, stridor Cardiovascular Exam: Present: regular rate, normal rhythm, normal heart sounds. Absent: systolic murmur, diastolic murmur, rubs, gallop, clicks GI/Abdominal exam: Present: soft, tenderness (Suprapubic and lower abdominal tenderness.), normal bowel sounds. Absent: distended, guarding, rebound, rigid Extremities exam: Present: normal inspection, full ROM, normal capillary refill. Absent: tenderness, pedal edema, joint swelling, calf tenderness Back exam: Present: normal inspection Neurological exam: Present: alert, oriented X3, CN II-XII intact Psychiatric exam: Present: normal affect, normal mood Skin exam: Present: warm, dry, intact, normal color. Absent: rash <Belinda Cruz - Last Filed: 01/03/18 16:09> - General Exam Comments Initial Comments: Physical 87-year-old female. Alert and oriented. No acute distress. (Belinda Cruz) Vital Signs 01/03/18 01/03/18 01/03/18 12:15 13:27 15:44 Temperature 96.9 F L 97.8 F Pulse Rate 77 65 72 Respiratory 18 18 18 Rate Blood Pressure 192/90 171/74 167/77 O2 Sat by Pulse 100 100 99 Oximetry Medical Decision Making - Lab Data Result diagrams: 01/03/18 13:15 01/03/18 13:15 <Mahesh Smith - Last Filed: 01/03/18 16:06> - Lab Data Result diagrams: 01/03/18 13:15 01/03/18 13:15 - Radiology Data Radiology results: report reviewed <Belinda Cruz - Last Filed: 01/03/18 16:09> - Medical Decision Making The patient was seen and examined. All diagnostics were reviewed. The case is discussed with Dr. Blanco from internal medicine and he is agreeable with admission. He would like GI to consult. The case is discussed with the PA and I agree with the findings as documented. (Mahesh Smith) 87-year-old female presents emergency department today with lower abdominal pain , GERD. Patient is admitted last week for similar complaints. Was discharged after failed the outpatient treatment of UTI. Today patient's urinalysis normal. She did have some bowel movements yesterday and the swelling today. I offered enemas patient has been doing these for herself at home. Patient's family is here and they're very frustrated patient continues to complain of some reflux-like symptoms and pain. He states she's been battling the symptoms and generalized abdominal pain and bloating for the past few months. She does have some mildly elevated pancreatic enzymes. This could be medication-induced pancreatitis. I discussed that she also seems to have GERD-like symptoms. She states she has some minimal improvement after Protonix and Zofran. Patient family quite upset that her reasons why she is having symptoms. I discussed that she may need to see a GI specialist for possibility of a scope. (Belinda Cruz) - Lab Data Lab Results 01/03/18 01/03/18 01/03/18 Range/Units 13:08 13:15 13:15 WBC 4.6 (3.8-10.6) k/uL RBC 3.75 L (3.80-5.40) m/uL Hgb 12.0 (11.4-16.0) gm/dL Hct 35.0 (34.0-46.0) % MCV 93.3 (80.0-100.0) fL MCH 32.0 (25.0-35.0) pg MCHC 34.3 (31.0-37.0) g/dL RDW 12.8 (11.5-15.5) % Plt Count 220 (150-450) k/uL Neutrophils % 69 % Lymphocytes % 20 % Monocytes % 8 % Eosinophils % 1 % Basophils % 0 % Neutrophils # 3.2 (1.3-7.7) k/uL Lymphocytes # 0.9 L (1.0-4.8) k/uL Monocytes # 0.4 (0-1.0) k/uL Eosinophils # 0.0 (0-0.7) k/uL Basophils # 0.0 (0-0.2) k/uL Sodium 127 L (137-145) mmol/L Potassium 4.3 (3.5-5.1) mmol/L Chloride 87 L (98-107) mmol/L Carbon Dioxide 29 (22-30) mmol/L Anion Gap 11 mmol/L BUN 22 H (7-17) mg/dL Creatinine 0.88 (0.52-1.04) mg/dL Est GFR (CKD-EPI)AfAm 68 (>60 ml/min/1.73 sqM) Est GFR (CKD-EPI)NonAf 59 (>60 ml/min/1.73 sqM) Glucose 116 H (74-99) mg/dL Calcium 10.4 H (8.4-10.2) mg/dL Total Bilirubin 0.4 (0.2-1.3) mg/dL AST 58 H (14-36) U/L ALT 52 (9-52) U/L Alkaline Phosphatase 85 (38-126) U/L Troponin I (0.000-0.034) ng/mL Total Protein 7.0 (6.3-8.2) g/dL Albumin 4.4 (3.5-5.0) g/dL Amylase 135 H (30-110) U/L Lipase 483 H (23-300) U/L Urine Color Yellow Urine Appearance Clear (Clear) Urine pH 8.0 (5.0-8.0) Ur Specific [place] 1.011 (1.001-1.035) Urine Protein Negative (Negative) Urine Glucose (UA) Negative (Negative) Urine Ketones Negative (Negative) Urine Blood Negative (Negative) Urine Nitrite Negative (Negative) Urine Bilirubin Negative (Negative) Urine Urobilinogen <2.0 (<2.0) mg/dL Ur Leukocyte Esterase Large H (Negative) Urine RBC <1 (0-5) /hpf Urine WBC 3 (0-5) /hpf Ur Squamous Epith Cells <1 (0-4) /hpf Hyaline Casts 3 H (0-2) /lpf Urine Mucus Rare H (None) /hpf 01/03/18 Range/Units 13:15 WBC (3.8-10.6) k/uL RBC (3.80-5.40) m/uL Hgb (11.4-16.0) gm/dL Hct (34.0-46.0) % MCV (80.0-100.0) fL MCH (25.0-35.0) pg MCHC (31.0-37.0) g/dL RDW (11.5-15.5) % Plt Count (150-450) k/uL Neutrophils % % Lymphocytes % % Monocytes % % Eosinophils % % Basophils % % Neutrophils # (1.3-7.7) k/uL Lymphocytes # (1.0-4.8) k/uL Monocytes # (0-1.0) k/uL Eosinophils # (0-0.7) k/uL Basophils # (0-0.2) k/uL Sodium (137-145) mmol/L Potassium (3.5-5.1) mmol/L Chloride (98-107) mmol/L Carbon Dioxide (22-30) mmol/L Anion Gap mmol/L BUN (7-17) mg/dL Creatinine (0.52-1.04) mg/dL Est GFR (CKD-EPI)AfAm (>60 ml/min/1.73 sqM) Est GFR (CKD-EPI)NonAf (>60 ml/min/1.73 sqM) Glucose (74-99) mg/dL Calcium (8.4-10.2) mg/dL Total Bilirubin (0.2-1.3) mg/dL AST (14-36) U/L ALT (9-52) U/L Alkaline Phosphatase (38-126) U/L Troponin I <0.012 (0.000-0.034) ng/mL Total Protein (6.3-8.2) g/dL Albumin (3.5-5.0) g/dL Amylase (30-110) U/L Lipase (23-300) U/L Urine Color Urine Appearance (Clear) Urine pH (5.0-8.0) Ur Specific [place] (1.001-1.035) Urine Protein (Negative) Urine Glucose (UA) (Negative) Urine Ketones (Negative) Urine Blood (Negative) Urine Nitrite (Negative) Urine Bilirubin (Negative) Urine Urobilinogen (<2.0) mg/dL Ur Leukocyte Esterase (Negative) Urine RBC (0-5) /hpf Urine WBC (0-5) /hpf Ur Squamous Epith Cells (0-4) /hpf Hyaline Casts (0-2) /lpf Urine Mucus (None) /hpf - Radiology Data KUB shows moderate stool pattern. No evidence of free air. (Belinda Cruz) Disposition <Mahesh Smith - Last Filed: 01/03/18 16:06> Is patient prescribed a controlled substance at d/c from ED?: No If prescribed controlled substance>3 days was MAPS reviewed?: No When asked, does pt state using other controlled substances?: No Time of Disposition: 16:08 <Belinda Cruz - Last Filed: 01/03/18 16:09> Clinical Impression: Abdominal pain, Constipation, Pancreatitis, GERD (gastroesophageal reflux disease) Disposition: ADMITTED IP TO THIS HOSP Condition: Good Referrals: Jessica Umanzor DO [Primary Care Provider] - 1-2 days
[2018-01-03] MEDS ORDERED: IBUPROFEN 400 MG TAB PO PRN (16:09)
[2018-01-03] MEDS ORDERED: MORPHINE SULFATE 4 MG/ML SYRINGE IV PRN (16:09)
[2018-01-03] MEDS ORDERED: NALOXONE 0.4 MG/ML 1 ML VIAL IV PRN (16:09)
[2018-01-03] MEDS: SODIUM CHLORIDE 0.9% 1,000 ML IV SCH (16:47)
[2018-01-03] MEDS ORDERED: MAG HYDROX/AL HYDROX/SIMETH 30 ML, HYOSCYAMINE ELIXIR 10 ML, CIMETIDINE HCL 300 MG, LID... PO ONE ×4 (18:00)
--- NOTE | 2018-01-03 18:01 | P.HPIM ---
History of Present Illness H&P Date: 01/03/18 Chief Complaint: Abdominal pain and constipation 87-year-old female feel presents emergency Department chief complaint of right sided abdominal fullness and tenderness. Apparently the patient was discharged approximately a week ago which he presented with similar symptoms and was found to have constipation and a presumptive UTI was started on empiric IV antibiotics urine cultures at time only grew mixed jillian she was discharged home on stool softeners MiraLAX and Dulcolax and Senokot, she reports compliance with the bowel regimen but has not had any significant relief, although she reports some success with using Fleet enemas. She did have a bowel movement yesterday. Patient states that she also complains of acid reflux symptoms of pyrosis and bloating and nausea. She states the nausea is not manageable. She reports she's had no fever or chills. Patient denies any chest pain or shortness of breath. Review of the patient's workup indicates she had a CT abdomen and pelvis on that showed no acute intra-abdominal pathology, today she had a KUB that shows no evidence of free air or bowel obstruction, moderate stool burden consistent with constipation and a suspected calcified granuloma at the right lower lung recommended 3 month follow-up. Of note she still has elevated lipase i483 , AST 58 and serum sodium 127 Past Medical History Past Medical History: CVA/TIA, Eye Disorder, Hyperlipidemia, Hypertension, Musculoskeletal Disorder, Osteoarthritis (OA) Additional Past Medical History / Comment(s): macular degeneration, wet left, dry right, scoliosis, arthritis, Tia 1987 History of Any Multi-Drug Resistant Organisms: None Reported Past Surgical History: Back Surgery, Joint Replacement Additional Past Surgical History / Comment(s): Total left knee, partial right knee, right great toe implant, multiple cervical and lumbar fusions, kyphoplasty Past Anesthesia/Blood Transfusion Reactions: No Reported Reaction Past Psychological History: Anxiety Smoking Status: Never smoker Past Alcohol Use History: None Reported Past Drug Use History: None Reported Medications and Allergies Home Medications Medication Instructions Recorded Confirmed Type Aspirin 81 mg PO DAILY 12/15/13 01/03/18 History Hydrochlorothiazide [Hydrodiuril] 25 mg PO BID 12/15/13 01/03/18 History Losartan Potassium [Cozaar] 100 mg PO DAILY 12/15/13 01/03/18 History Metoprolol Succinate [Toprol XL] 50 mg PO AC-BRKFST 12/15/13 01/03/18 History Simvastatin [Zocor] 40 mg PO HS 12/15/13 01/03/18 History Temazepam [Restoril] 30 mg PO HS 12/15/13 01/03/18 History Docusate [Colace] 100 mg PO HS 12/25/17 01/03/18 History Vit C/E/Zn/Coppr/Lutein/Zeaxan 1 cap PO BID 12/25/17 01/03/18 History [Preservision Areds 2 Softgel] Acetaminophen Tab [Tylenol] 650 mg PO Q6HR PRN tab 12/27/17 01/03/18 Rx Bisacodyl [Dulcolax] 10 mg RECTAL DAILY PRN #30 supp 12/27/17 01/03/18 Rx Ondansetron [Zofran] 4 mg PO Q8HR PRN #30 tab 12/27/17 01/03/18 Rx Polyethylene Glycol 3350 [Miralax] 17 gm PO DAILY #30 powd.pack 12/27/17 Rx Sennosides [Senokot] 8.6 mg PO BID #30 tab 12/27/17 01/03/18 Rx Allergies Allergy/AdvReac Type Severity Reaction Status Date / Time dexamethasone [From Decadron] Allergy Itching Verified 12/25/17 13:07 dexamethasone sod phosphate Allergy Itching Verified 12/25/17 13:07 [From Decadron] diclofenac [From Voltaren] Allergy Unknown Verified 12/25/17 13:22 hydroxyzine HCl [From Atarax] Allergy Itching Verified 12/25/17 13:07 ibuprofen [From Motrin] Allergy Itching Verified 12/25/17 13:07 lisinopril Allergy Itching Verified 12/25/17 13:07 Sulfa (Sulfonamide Allergy Itching Verified 12/25/17 13:07 Antibiotics) nitrofurantoin AdvReac "DOES NOT Verified 12/25/17 13:22 WORK" Physical Exam Vitals: Vital Signs Temp Pulse Resp BP Pulse Ox 01/03/18 15:44 97.8 F 72 18 167/77 99 01/03/18 13:27 65 18 171/74 100 01/03/18 12:15 96.9 F L 77 18 192/90 100 Intake and Output 01/03/18 01/03/18 01/03/18 06:59 14:59 22:59 Other: Weight 68.039 kg Constitutional: No acute distress, conversant, pleasant Eyes: Anicteric sclerae, moist conjunctiva, no lid-lag, PERRLA ENMT: NC/AT,Oropharynx clear, no erythema, exudates Neck:Supple, FROM, no masses, or JVD, No carotid bruits; No thyromegaly Lungs: Clear to auscultation, Clear to percussion, Normal respiratory effort, no accessory muscle use Cardiovascular: Heart regular in rate and rhythm, No murmurs, gallops, or rubs no peripheral edema Abdominal: Soft mildly tender to palpation in the midepigastric area and right upper quadrant, non distended, no guarding, no rebound or rigidity, Normoactive bowel sounds No hepatomegaly, No splenomegaly, No palpable mass No abdominal wall hernia noted Skin: Normal temperature, tone, texture, turgor, No induration No subcutaneous nodules, No rash, lesions, No ulcers Extremities:No digital cyanosis No clubbing, Pedal pulses intact and symmetrical Radial pulses intact and symmetrical Normal gait and station, No calf tenderness Psychiatric: Alert and oriented to person, place and time, Appropriate affect Intact judgement Neuro: Muscles Strength 5/5 in all 4 extremities, Sensation to light touch grossly present throughout, Cranial nerves II-XII grossly intact. No focal sensory deficits Results CBC & Chem 7: 01/03/18 13:15 01/03/18 13:15 Labs: Abnormal Lab Results - Last 24 Hours (Table) 01/03/18 01/03/18 01/03/18 Range/Units 13:08 13:15 13:15 RBC 3.75 L (3.80-5.40) m/uL Lymphocytes # 0.9 L (1.0-4.8) k/uL Sodium 127 L (137-145) mmol/L Chloride 87 L (98-107) mmol/L BUN 22 H (7-17) mg/dL Glucose 116 H (74-99) mg/dL Calcium 10.4 H (8.4-10.2) mg/dL AST 58 H (14-36) U/L Amylase 135 H (30-110) U/L Lipase 483 H (23-300) U/L Ur Leukocyte Esterase Large H (Negative) Hyaline Casts 3 H (0-2) /lpf Urine Mucus Rare H (None) /hpf Assessment and Plan (1) Abdominal pain Current Visit: Yes Status: Acute Code(s): R10.9 - UNSPECIFIED ABDOMINAL PAIN SNOMED Code(s): 22955910 (2) Constipation Current Visit: Yes Status: Acute Code(s): K59.00 - CONSTIPATION, UNSPECIFIED SNOMED Code(s): 60474702 (3) GERD (gastroesophageal reflux disease) Current Visit: Yes Status: Acute Code(s): K21.9 - GASTRO-ESOPHAGEAL REFLUX DISEASE WITHOUT ESOPHAGITIS SNOMED Code(s): 417643307 (4) Hyponatremia Current Visit: Yes Status: Acute Code(s): E87.1 - HYPO-OSMOLALITY AND HYPONATREMIA SNOMED Code(s): 59704080 (5) Accelerated hypertension Current Visit: Yes Status: Acute Code(s): I10 - ESSENTIAL (PRIMARY) HYPERTENSION SNOMED Code(s): 03465435 (6) Elevated lipase Current Visit: Yes Status: Acute Code(s): R74.8 - ABNORMAL LEVELS OF OTHER SERUM ENZYMES SNOMED Code(s): 903361419 (7) Calcified granuloma of lung Current Visit: Yes Status: Acute Code(s): J84.10 - PULMONARY FIBROSIS, UNSPECIFIED SNOMED Code(s): 87866340 Plan: The patient is admitted to the medical unit with abdominal pain and elevated lipase with signs of mild dehydration with hyponatremia of serum sodium 127. She started on fluids, IV antiemetics, we'll give her a GI cocktail, IV PPI therapy and make her nothing by mouth pending GI consult. I suspect the patient might have some upper GI pathology either gastritis versus esophagitis or peptic ulcer disease. The patient did report that she had a colonoscopy in 2012 which was reportedly normal. We'll resume her oral anti-hypertensive medication regimen, and start lactulose for constipation, continue with MiraLAX and Senokot. Continue to monitor this patient's clinical course
[2018-01-03] MEDS: FAMOTIDINE 20 MG TAB PO SCH (18:38)
[2018-01-03] MEDS: ACETAMINOPHEN TAB 325 MG TAB PO PRN (20:13)
[2018-01-03] MEDS: LACTULOSE 20 GM/30 ML CUP PO SCH (20:14)
[2018-01-03] MEDS: ONDANSETRON 4 MG/2 ML VIAL IVP PRN (20:16)
[2018-01-03] MEDS: TEMAZEPAM 15 MG CAP PO PRN (21:01)
[2018-01-04] MEDS: ACETAMINOPHEN TAB 325 MG TAB PO PRN ×2 (03:47→14:22)
[2018-01-04] MEDS: SODIUM CHLORIDE 0.9% 1,000 ML IV SCH ×2 (06:09→15:29)
[2018-01-04] MEDS: ONDANSETRON 4 MG/2 ML VIAL IVP PRN (06:10)
[2018-01-04 08:04] LABS: Basophils % (A) 0 %; Eosinophils # (A) 0.2 k/uL (0-0.7); Eosinophils % (A) 4 %; HCT 32.6 % (34.0-46.0); HGB 10.8 gm/dL (11.4-16.0); Lymphocytes % (A) 27 %; MCH 31.5 pg (25.0-35.0); MCHC 33.2 g/dL (31.0-37.0); Mean Platelet Volume 6.9; Monocytes # (A) 0.3 k/uL (0-1.0); Monocytes % (A) 9 %; Neutrophils # (A) 2.2 k/uL (1.3-7.7); Neutrophils % (A) 58 %; Platelet Count 200 k/uL (150-450); RBC 3.43 m/uL (3.80-5.40); RDW 12.9 % (11.5-15.5); WBC 3.8 k/uL (3.8-10.6)
[2018-01-04] MEDS: FAMOTIDINE 20 MG TAB PO SCH (08:15)
[2018-01-04] MEDS: HYDROCHLOROTHIAZIDE 25 MG TAB PO SCH (08:15)
[2018-01-04] MEDS: LOSARTAN 50 MG TAB PO SCH (08:15)
[2018-01-04] MEDS: METOPROLOL SUCCINATE (ER) 50 MG TAB.ER.24H PO SCH (08:15)
[2018-01-04] MEDS: PANTOPRAZOLE 40 MG/10 ML VIAL IV SCH (08:16)
[2018-01-04] MEDS: LACTULOSE 20 GM/30 ML CUP PO SCH ×2 (08:16→15:29)
[2018-01-04 08:22] LABS: Albumin 3.4 g/dL (3.5-5.0); Calcium 9.6 mg/dL (8.4-10.2); Total Bilirubin 0.4 mg/dL (0.2-1.3); Total Protein 5.8 g/dL (6.3-8.2)
--- NOTE | 2018-01-04 09:22 | P.PN ---
Subjective Progress Note Date: 01/04/18 Patient continues to complain about abdominal bloating and pressure, but is also requesting to eat, also complains of headache this morning. Discussed the plan of care that GI has been consulted and that she has to be NPO in case they decided to do upper endoscopy She reports to having 2 large bowel movements overnight on current bowel regimen. No acute events overnight Objective - Vital Signs Vital signs: Vital Signs Temp 97.5 F L 01/04/18 06:00 Pulse 67 01/04/18 06:00 Resp 17 01/04/18 06:00 BP 128/61 01/04/18 06:00 Pulse Ox 98 01/04/18 06:00 Intake & Output 01/03/18 01/04/18 01/04/18 18:59 06:59 18:59 Weight 68.039 kg Other: Voiding Method Toilet Toilet Toilet # Voids 1 3 - Exam Constitutional: No acute distress, conversant, pleasant Eyes: Anicteric sclerae, moist conjunctiva, no lid-lag, PERRLA ENMT: NC/AT,Oropharynx clear, no erythema, exudates Neck:Supple, FROM, no masses, or JVD, No carotid bruits; No thyromegaly Lungs: Clear to auscultation, Clear to percussion, Normal respiratory effort, no accessory muscle use Cardiovascular: Heart regular in rate and rhythm, No murmurs, gallops, or rubs no peripheral edema Abdominal: Soft and minimally tender, non distended, no guarding, no rebound or rigidity, Normoactive bowel sounds No hepatomegaly, No splenomegaly, No palpable mass No abdominal wall hernia noted Skin: Normal temperature, tone, texture, turgor, No induration No subcutaneous nodules, No rash, lesions, No ulcers Extremities:No digital cyanosis No clubbing, Pedal pulses intact and symmetrical Radial pulses intact and symmetrical Normal gait and station, No calf tenderness Psychiatric: Alert and oriented to person, place and time, Appropriate affect Intact judgement Neuro: Muscles Strength 5/5 in all 4 extremities, Sensation to light touch grossly present throughout, Cranial nerves II-XII grossly intact. No focal sensory deficits - Labs CBC & Chem 7: 01/04/18 07:48 01/04/18 07:48 Labs: Abnormal Lab Results - Last 24 Hours (Table) 05/01/03/18 01/03/18 Range/Units 13:08 13:15 13:15 RBC 3.75 L (3.80-5.40) m/uL Hgb (11.4-16.0) gm/dL Hct (34.0-46.0) % Lymphocytes # 0.9 L (1.0-4.8) k/uL Sodium 127 L (137-145) mmol/L Chloride 87 L (98-107) mmol/L BUN 22 H (7-17) mg/dL Glucose 116 H (74-99) mg/dL Calcium 10.4 H (8.4-10.2) mg/dL AST 58 H (14-36) U/L ALT (9-52) U/L Total Protein (6.3-8.2) g/dL Albumin (3.5-5.0) g/dL Amylase 135 H (30-110) U/L Lipase 483 H (23-300) U/L Ur Leukocyte Esterase Large H (Negative) Hyaline Casts 3 H (0-2) /lpf Urine Mucus Rare H (None) /hpf 01/04/18 01/04/18 Range/Units 07:48 07:48 RBC 3.43 L (3.80-5.40) m/uL Hgb 10.8 L (11.4-16.0) gm/dL Hct 32.6 L (34.0-46.0) % Lymphocytes # (1.0-4.8) k/uL Sodium 130 L (137-145) mmol/L Chloride 95 L (98-107) mmol/L BUN (7-17) mg/dL Glucose (74-99) mg/dL Calcium (8.4-10.2) mg/dL AST 52 H (14-36) U/L ALT 53 H (9-52) U/L Total Protein 5.8 L (6.3-8.2) g/dL Albumin 3.4 L (3.5-5.0) g/dL Amylase (30-110) U/L Lipase (23-300) U/L Ur Leukocyte Esterase (Negative) Hyaline Casts (0-2) /lpf Urine Mucus (None) /hpf Microbiology - Last 24 Hours (Table) 01/03/18 13:08 Urine Culture - Preliminary Urine,Voided Assessment and Plan (1) Abdominal pain Narrative/Plan: * GI consulted to evaluate for upper endoscopy patient possibly has gastritis or esophagitis * Continue supportive therapy Current Visit: Yes Status: Acute Code(s): R10.9 - UNSPECIFIED ABDOMINAL PAIN SNOMED Code(s): 51287966 (2) Constipation Narrative/Plan: * Resolved patient had 2 large bowel movements * Continue current bowel regimen with lactulose daily and MiraLAX Current Visit: Yes Status: Resolved Code(s): K59.00 - CONSTIPATION, UNSPECIFIED SNOMED Code(s): 63492581 (3) GERD (gastroesophageal reflux disease) Narrative/Plan: * Continue PPI therapy Current Visit: Yes Status: Acute Code(s): K21.9 - GASTRO-ESOPHAGEAL REFLUX DISEASE WITHOUT ESOPHAGITIS SNOMED Code(s): 596819543 (4) Hyponatremia Narrative/Plan: * Dehydration and hyponatremia resolving on IV fluids continue normal saline at 80 mL an hour Current Visit: Yes Status: Acute Code(s): E87.1 - HYPO-OSMOLALITY AND HYPONATREMIA SNOMED Code(s): 88250282 (5) Accelerated hypertension Narrative/Plan: * Blood pressure now stable after restarting her home hypertensive regimen Current Visit: Yes Status: Acute Code(s): I10 - ESSENTIAL (PRIMARY) HYPERTENSION SNOMED Code(s): 06695245 (6) Elevated lipase Current Visit: Yes Status: Acute Code(s): R74.8 - ABNORMAL LEVELS OF OTHER SERUM ENZYMES SNOMED Code(s): 175028632 (7) Calcified granuloma of lung Narrative/Plan: * Patient would need follow-up imaging in 3 months Current Visit: Yes Status: Acute Code(s): J84.10 - PULMONARY FIBROSIS, UNSPECIFIED SNOMED Code(s): 50784334 Plan: Awaiting GI recommendations anticipate discharge in 1-2 days
[2018-01-04 13:43] VITALS: BMI 28.3
--- NOTE | 2018-01-04 14:25 | CONS ---
CONSULTATION DATE OF DICTATION: January 04, 2018. REQUESTING PHYSICIAN: Dr. Amezcua and Dr. Jessica Cuenca. REASON FOR CONSULTATION: Abdominal pain and constipation. HISTORY OF PRESENT ILLNESS: The patient is an 87-year-old pleasant white female admitted in the emergency room complaining of lower abdominal discomfort, abdominal pressure and fullness for the last one month duration. About 3 weeks ago, she started becoming constipated and was having bowel movements anywhere from 1 or 2 a week. She tried taking [id number]-[id number] laxatives and stool softeners with some help. However, the pain continued to progressively get worse and in the last 1 week, it was more intense, more in the right lower quadrant area. Came to the emergency room. Subsequently had a CT of the abdomen and pelvis done a week ago that was unremarkable. She was discharged home and advised to continue with laxatives, but she came back yesterday with the same symptoms and admitted to the hospital for further evaluation. During this time, she was noted to have minimal elevation of lipase, but rest of the labs were within normal limits. She had mild hyponatremia. She was given oral lactulose yesterday and had about 3 bowel movements through the night. This morning she feels much better. She still has some pressure in the lower abdominal area. The abdominal pain has significantly improved. No nausea, vomiting. No rectal bleeding or melena. She did have a colonoscopy in 2011 and, according to the patient, was within normal limits. PAST MEDICAL HISTORY: Significant for hypertension, hyperlipidemia, history of CVA in the past, osteoarthritis, macular degeneration. PAST SURGICAL HISTORY: Back surgery, total left knee replacement, kyphoplasty. MEDICATIONS: At home include aspirin, HydroDIURIL, Cozaar, Toprol, Zocor, Restoril, Colace, Dulcolax, Zofran, Senokot, MiraLAX. ALLERGIES: VOLTAREN, ATARAX, MOTRIN, LISINOPRIL, SULFA, NITROFURANTOIN. SOCIAL HISTORY: No smoking or alcohol use. FAMILY HISTORY: Unremarkable. REVIEW OF SYSTEMS: Cardiopulmonary: She denies any chest pain, shortness of breath. Genitourinary: No hematuria. Musculoskeletal unremarkable. Skin unremarkable. Endocrine unremarkable. Psychiatric unremarkable. Neurology unremarkable. ENT vision unremarkable. Constitutional: No recent weight loss. No fever, chills, night sweats. Hematology unremarkable. Endocrine unremarkable. PHYSICAL EXAMINATION: She appears comfortable in no apparent distress. Vital signs stable. Blood pressure is 155/70, pulse is 70, temperature 98.9. HEENT examination unremarkable. Conjunctivae pink. Sclerae anicteric and oral cavity no lesions. Neck no JVD or lymph node enlargement. Chest was clear to auscultation. HEART: Regular rate and rhythm. ABDOMEN: Soft. Bowel sounds are positive. There was very minimal tenderness in the right lower quadrant area, but there was no rebound or rigidity. Extremities: No pedal edema. Skin no rashes. NEUROLOGIC: Alert and oriented x3. No focal deficits. LAB: Done at the time of admission to the hospital: WBC was 4.6, hemoglobin 12, platelets are normal. Basic metabolic panel showed a sodium of 127, potassium 4.3, chloride 87, CO2 29, BUN 22, creatinine 0.8 today. Labs are within normal limits. AST and ALT are 58 and respectively. The amylase was 135 and lipase is 483. Leukocyte esterase was positive in the urinalysis. IMPRESSION: 1. This is a lady who presents to the hospital with lower abdominal pain, abdominal pressure, and severe constipation for the last 3 weeks duration. She had a CT of the abdomen and pelvis done on December 25 that was unremarkable other than mild constipation. The patient has tried over the counter laxatives with no relief. Yesterday she was given oral lactulose by Dr. Amezcua and she had several bowel movements through the night and feels better. Though has some abdominal discomfort. Her last colonoscopy in was within normal limits. 2. Minimal elevation of serum transaminases. 3. Mild elevation of lipase, not consistent with pancreatitis. RECOMMENDATION: 1. Agree with oral osmotic laxative but titrate so that she has a bowel movement every day. 2. No indication to proceed with any endoscopy intervention at the present time. 3. Start her on regular diet and if she tolerates well, she can be discharged home and I suggested for her to follow up in office in a couple of weeks. Thank you for this consultation. IANL / JANYN: [id number] /
[2018-01-04] MEDS ORDERED: LACTULOSE 20 GM/30 ML CUP PO ONE (17:23)
[2018-01-04] MEDS: SIMETHICONE 80 MG CHEWABLE PO SCH ×2 (18:11→21:40)
[2018-01-04] MEDS: TEMAZEPAM 15 MG CAP PO PRN (21:40)
[2018-01-05] MEDS: ACETAMINOPHEN TAB 325 MG TAB PO PRN ×2 (05:35→12:34)
[2018-01-05] MEDS: SODIUM CHLORIDE 0.9% 1,000 ML IV SCH ×2 (05:36→17:29)
[2018-01-05] MEDS: FAMOTIDINE 20 MG TAB PO SCH (08:21)
[2018-01-05] MEDS: HYDROCHLOROTHIAZIDE 25 MG TAB PO SCH (08:22)
[2018-01-05] MEDS: LACTULOSE 20 GM/30 ML CUP PO SCH (08:22)
[2018-01-05] MEDS: LOSARTAN 50 MG TAB PO SCH (08:23)
[2018-01-05] MEDS: PANTOPRAZOLE 40 MG/10 ML VIAL IV SCH (08:23)
[2018-01-05] MEDS: SIMETHICONE 80 MG CHEWABLE PO SCH ×4 (08:23→21:08)
[2018-01-05] MEDS: METOPROLOL SUCCINATE (ER) 50 MG TAB.ER.24H PO SCH (08:23)
[2018-01-05 10:17] LABS: Albumin 4.1 g/dL (3.5-5.0); Calcium 10.1 mg/dL (8.4-10.2); Potassium 4.2 mmol/L (3.5-5.1); Total Bilirubin 0.4 mg/dL (0.2-1.3); Total Protein 6.8 g/dL (6.3-8.2)
--- NOTE | 2018-01-05 10:20 | P.PN ---
Subjective Progress Note Date: 01/05/18 Principal diagnosis: Constipation Passing bowel movements. Denies abdominal pain. Tolerating diet. Objective - Vital Signs Vital signs: Vital Signs Temp 98.2 F 01/05/18 05:38 Pulse 81 01/05/18 05:38 Resp 18 01/05/18 05:38 BP 143/68 01/05/18 05:38 Pulse Ox 97 01/05/18 05:38 Intake & Output 01/04/18 01/05/18 01/05/18 18:59 06:59 18:59 Weight 68.039 kg Other: Voiding Method Toilet Toilet # Voids 2 2 # Bowel Movements 1 - Exam General appearance: The patient is alert, oriented, in no acute distress. HET: Head is normocephalic and atraumatic. Pupils are equal and reactive. Oropharynx is clear without lesions. Neck: Supple without lymphadenopathy. Trachea midline. Heart: S1 S2. Regular rate and rhythm. Lungs: No crackles or wheezes are heard. Abdomen: Soft, nontender, nondistended with bowel sounds. No peritoneal signs. No palpable organomegaly or masses. Extremities: Normal skin color and turgor. No cyanosis, rash, ulceration, clubbing, or edema. Radial and pedal pulses are 2/4 bilaterally. Neurological: No focal deficits. Strength and sensation are grossly intact. - Labs CBC & Chem 7: 01/04/18 07:48 01/05/18 09:31 Labs: Microbiology - Last 24 Hours (Table) 01/03/18 13:08 Urine Culture - Final Urine,Voided Assessment and Plan (1) Abdominal pain Current Visit: Yes Status: Acute Code(s): R10.9 - UNSPECIFIED ABDOMINAL PAIN SNOMED Code(s): 07632504 (2) Constipation Current Visit: Yes Status: Resolved Code(s): K59.00 - CONSTIPATION, UNSPECIFIED SNOMED Code(s): 98068261 (3) Transaminitis Current Visit: Yes Status: Acute Code(s): R74.0 - NONSPEC ELEV OF LEVELS OF TRANSAMNS & LACTIC ACID DEHYDRGNSE SNOMED Code(s): 819057132 (4) Elevated amylase and lipase Narrative/Plan: nonspecific. Asymptomatic. Current Visit: Yes Status: Acute Code(s): R74.8 - ABNORMAL LEVELS OF OTHER SERUM ENZYMES SNOMED Code(s): 460492287 Plan: 1. Stool softeners laxatives were discussed Senokot-S 1-2 times daily and/or MiraLAX 1 scoop 1-2 times daily as needed. Return to office in 2-3 weeks for reevaluation. CMP 3-5 days. Follow up PCP 1 week. Discharge per medicine. Assessment and plan a care discussed with Dr. Becker
--- NOTE | 2018-01-05 11:30 | P.DS ---
Providers Date of admission: 01/03/18 16:01 Expected date of discharge: 01/05/18 Attending physician: Neto Blanco MD Primary care physician: Jessica Umanzor - Discharge Diagnosis(es) (1) Abdominal pain Current Visit: Yes Status: Acute (2) Constipation Current Visit: Yes Status: Resolved (3) GERD (gastroesophageal reflux disease) Current Visit: Yes Status: Acute (4) Hyponatremia Current Visit: Yes Status: Acute (5) Accelerated hypertension Current Visit: Yes Status: Acute (6) Elevated lipase Current Visit: Yes Status: Acute (7) Calcified granuloma of lung Current Visit: Yes Status: Acute Hospital Course: The patient is a 87-year-old female is admitted with abdominal pain secondary to constipation superimposed on acid reflux, she had previously been here for similar symptoms a week ago and had no relief with her bowel regimen. On admission here she had a KUB that showed moderate constipation she was given a GI cocktail, started on PPI therapy and lactulose. She had several large bowel movements and continued to have a healthy appetite despite having complaints of nausea and pyrosis. GI was consulted for possible EGD however they decided not to proceed with any upper endoscopy and was reported that there would follow the patient in clinic, was thought that she had pancreatitis however it did not appear so clinically as a patient had a pretty healthy appetite, it was thought the elevation of her amylase and lipase was nonspecific. The patient was started on IV fluids for her hyponatremia, it was thought that her hyponatremia was secondary to ongoing diuretic use for high high blood pressure. She was subsequently discharged home with a plan in place for her to continue with Senokot and MiraLAX for her bowel regimen per GI instruction with plans to follow up in clinic in a couple weeks. The patient was noted to have incidental finding of a calcified granuloma on her KUB with recommendation for three-month follow-up. She was discharged home in stable condition, tolerating a full diet. This discharge process took approximately 30 minutes Things to BE addressed Follow-up visit with GI in 2 weeks Surveillance of her calcified granuloma in 3 months Constitutional: No acute distress, conversant, pleasant Eyes: Anicteric sclerae, moist conjunctiva, no lid-lag, PERRLA ENMT: NC/AT,Oropharynx clear, no erythema, exudates Neck:Supple, FROM, no masses, or JVD, No carotid bruits; No thyromegaly Lungs: Clear to auscultation, Clear to percussion, Normal respiratory effort, no accessory muscle use Cardiovascular: Heart regular in rate and rhythm, No murmurs, gallops, or rubs no peripheral edema Abdominal: Soft Nontender, nom distended, no guarding, no rebound or rigidity, Normoactive bowel sounds No hepatomegaly, No splenomegaly, No palpable mass No abdominal wall hernia noted Skin: Normal temperature, tone, texture, turgor, No induration No subcutaneous nodules, No rash, lesions, No ulcers Extremities:No digital cyanosis No clubbing, Pedal pulses intact and symmetrical Radial pulses intact and symmetrical Normal gait and station, No calf tenderness Psychiatric: Alert and oriented to person, place and time, Appropriate affect Intact judgement Neuro: Muscles Strength 5/5 in all 4 extremities, Sensation to light touch grossly present throughout, Cranial nerves II-XII grossly intact. No focal sensory deficits Patient Condition at Discharge: Good Plan - Discharge Summary New Discharge Prescriptions: New Famotidine [Pepcid] 20 mg PO BID #60 tab Pantoprazole [Protonix] 40 mg PO AC-BRKFST #30 tablet.dr Continue Metoprolol Succinate [Toprol XL] 50 mg PO AC-BRKFST Losartan Potassium [Cozaar] 100 mg PO DAILY Temazepam [Restoril] 30 mg PO HS Simvastatin [Zocor] 40 mg PO HS Aspirin 81 mg PO DAILY Hydrochlorothiazide [Hydrodiuril] 25 mg PO BID Vit C/E/Zn/Coppr/Lutein/Zeaxan [Preservision Areds 2 Softgel] 1 cap PO BID Acetaminophen Tab [Tylenol] 650 mg PO Q6HR PRN tab PRN Reason: Mild Pain Or Fever > 100.5 Ondansetron [Zofran] 4 mg PO Q8HR PRN #30 tab PRN Reason: Nausea And Vomiting Polyethylene Glycol 3350 [Miralax] 17 gm PO DAILY #30 powd.pack Sennosides [Senokot] 8.6 mg PO BID #30 tab Discontinued Docusate [Colace] 100 mg PO HS Bisacodyl [Dulcolax] 10 mg RECTAL DAILY PRN #30 supp PRN Reason: Constipation Discharge Medication List Aspirin 81 mg PO DAILY 12/15/13 [History] Hydrochlorothiazide [Hydrodiuril] 25 mg PO BID 12/15/13 [History] Losartan Potassium [Cozaar] 100 mg PO DAILY 12/15/13 [History] Metoprolol Succinate [Toprol XL] 50 mg PO AC-BRKFST 12/15/13 [History] Simvastatin [Zocor] 40 mg PO HS 12/15/13 [History] Temazepam [Restoril] 30 mg PO HS 12/15/13 [History] Vit C/E/Zn/Coppr/Lutein/Zeaxan [Preservision Areds 2 Softgel] 1 cap PO BID 12/25 [History] Acetaminophen Tab [Tylenol] 650 mg PO Q6HR PRN tab 12/27/17 [Rx] Ondansetron [Zofran] 4 mg PO Q8HR PRN #30 tab 12/27/17 [Rx] Polyethylene Glycol 3350 [Miralax] 17 gm PO DAILY #30 powd.pack 12/27/17 [Rx] Sennosides [Senokot] 8.6 mg PO BID #30 tab 12/27/17 [Rx] Famotidine [Pepcid] 20 mg PO BID #60 tab 01/05/18 [Rx] Pantoprazole [Protonix] 40 mg PO AC-BRKFST #30 tablet. 01/05/18 [Rx] Follow up Appointment(s)/Referral(s): Jessica Umanzor DO [Primary Care Provider] - 1-2 days [facility], [NON-STAFF] - Casandra Block PAC [REFERRING] - 01/25/18 1:00 pm Activity/Diet/Wound Care/Special Instructions: Please make sure you follow up with your primary care Dr. Umanzor in 1-2 days after discharge and then [facility] can come for visit.
[2018-01-05 15:04] VITALS: RESP 16
[2018-01-05] MEDS ORDERED: BISACODYL 5 MG TABLET.DR PO STA (15:17)
[2018-01-05] MEDS ORDERED: PEG 3350-NA SULF,BICARB,CL/KCL 4,000 ML BOTTLE PO ONE (16:00)
--- NOTE | 2018-01-05 17:05 | P.PN ---
Subjective Progress Note Date: 01/05/18 Patient reports having intermittent episodes of abdominal pain or pyrosis-type symptoms with bloating she reports that her constipation is resolved that she's had several bowel movements since yesterday. Patient still eating 100% of all her meals. Objective - Vital Signs Vital signs: Vital Signs Temp 97.1 F L 01/05/18 15:00 Pulse 68 01/05/18 15:00 Resp 16 01/05/18 15:00 BP 131/75 01/05/18 15:00 Pulse Ox 100 01/05/18 15:00 Intake & Output 01/04/18 01/05/18 01/05/18 18:59 06:59 18:59 Weight 68.039 kg Other: Voiding Method Toilet Toilet # Voids 2 2 3 # Bowel Movements 1 - Exam Constitutional: No acute distress, conversant, pleasant Eyes: Anicteric sclerae, moist conjunctiva, no lid-lag, PERRLA ENMT: NC/AT,Oropharynx clear, no erythema, exudates Neck:Supple, FROM, no masses, or JVD, No carotid bruits; No thyromegaly Lungs: Clear to auscultation, Clear to percussion, Normal respiratory effort, no accessory muscle use Cardiovascular: Heart regular in rate and rhythm, No murmurs, gallops, or rubs no peripheral edema Abdominal: Soft and minimally tender, non distended, no guarding, no rebound or rigidity, Normoactive bowel sounds No hepatomegaly, No splenomegaly, No palpable mass No abdominal wall hernia noted Skin: Normal temperature, tone, texture, turgor, No induration No subcutaneous nodules, No rash, lesions, No ulcers Extremities:No digital cyanosis No clubbing, Pedal pulses intact and symmetrical Radial pulses intact and symmetrical Normal gait and station, No calf tenderness Psychiatric: Alert and oriented to person, place and time, Appropriate affect Intact judgement Neuro: Muscles Strength 5/5 in all 4 extremities, Sensation to light touch grossly present throughout, Cranial nerves II-XII grossly intact. No focal sensory deficits - Labs CBC & Chem 7: 01/04/18 07:48 01/05/18 09:31 Labs: Abnormal Lab Results - Last 24 Hours (Table) 01/05/18 Range/Units 09:31 Sodium 130 L (137-145) mmol/L Chloride 92 L (98-107) mmol/L Glucose 130 H (74-99) mg/dL AST 58 H (14-36) U/L ALT 54 H (9-52) U/L Amylase 134 H (30-110) U/L Lipase 509 H (23-300) U/L Assessment and Plan (1) Abdominal pain Narrative/Plan: * GI initially planning to sign off and have the patient follow-up but she is having ongoing abdominal discomfort * We'll attempt to get consent for upper endoscopy and possibly colonoscopy GI to order prep * Continue supportive therapy Current Visit: Yes Status: Acute Code(s): R10.9 - UNSPECIFIED ABDOMINAL PAIN SNOMED Code(s): 21435978 (2) Constipation Narrative/Plan: * Resolved patient had 2 large bowel movements * Continue current bowel regimen with lactulose daily and MiraLAX Current Visit: Yes Status: Resolved Code(s): K59.00 - CONSTIPATION, UNSPECIFIED SNOMED Code(s): 06660760 (3) GERD (gastroesophageal reflux disease) Narrative/Plan: * Continue PPI therapy Current Visit: Yes Status: Acute Code(s): K21.9 - GASTRO-ESOPHAGEAL REFLUX DISEASE WITHOUT ESOPHAGITIS SNOMED Code(s): 641257782 (4) Hyponatremia Narrative/Plan: * Dehydration and hyponatremia resolving on IV fluids continue normal saline at 80 mL an hour Current Visit: Yes Status: Acute Code(s): E87.1 - HYPO-OSMOLALITY AND HYPONATREMIA SNOMED Code(s): 23692040 (5) Accelerated hypertension Narrative/Plan: * Blood pressure now stable after restarting her home hypertensive regimen Current Visit: Yes Status: Acute Code(s): I10 - ESSENTIAL (PRIMARY) HYPERTENSION SNOMED Code(s): 33059575 (6) Elevated lipase Current Visit: Yes Status: Acute Code(s): R74.8 - ABNORMAL LEVELS OF OTHER SERUM ENZYMES SNOMED Code(s): 934210133 (7) Calcified granuloma of lung Current Visit: Yes Status: Acute Code(s): J84.10 - PULMONARY FIBROSIS, UNSPECIFIED SNOMED Code(s): 49521764
[2018-01-05] MEDS: TEMAZEPAM 15 MG CAP PO PRN (21:50)
[2018-01-06] MEDS: ACETAMINOPHEN TAB 325 MG TAB PO PRN (04:20)
[2018-01-06 05:53] VITALS: TEMP 97
[2018-01-06] MEDS ORDERED: PANTOPRAZOLE 40 MG TABLET PO SCH (07:30)
[2018-01-06] MEDS: LACTULOSE 20 GM/30 ML CUP PO SCH (07:36)
[2018-01-06] MEDS: METOPROLOL SUCCINATE (ER) 50 MG TAB.ER.24H PO SCH (07:40)
[2018-01-06] MEDS: SODIUM CHLORIDE 0.9% 1,000 ML IV SCH (07:40)
[2018-01-06] MEDS: HYDROCHLOROTHIAZIDE 25 MG TAB PO SCH (07:40)
[2018-01-06] MEDS: LOSARTAN 50 MG TAB PO SCH (07:40)
[2018-01-06] MEDS: FAMOTIDINE 20 MG TAB PO SCH (07:40)
[2018-01-06] MEDS: SIMETHICONE 80 MG CHEWABLE PO SCH ×2 (07:40→14:36)
[2018-01-06] MEDS ORDERED: IV FLUID CONTINUATION 1,000 ML IV ONE (12:35)
--- NOTE | 2018-01-06 12:58 | P.PCN ---
Date of Procedure: 01/06/18 Procedure(s) Performed: Brief history: Patient is a pleasant 87-year-old white female, scheduled for an elective upper endoscopy as well as colonoscopy as a part of evaluation of abdominal pain, nausea constipation and abdominal bloating for the last 3-[address] of the abdomen was unremarkable. Patient was treated with constipation and still continues to remain symptomatic and hence she is scheduled for an upper endoscopy as well as colonoscopy to evaluate further Procedure performed: Esophagogastroduodenoscopy with biopsy Colonoscopy PreOperative diagnosis. Abdominal pain/change in bowel habits/abdominal bloating Anesthesia: MAC Procedure: After informed consent was obtained from the patient was brought into the endoscopy unit and IV sedation was administered by anesthesia under continuous monitoring. Initially upper endoscopy was done. The Olympus GF 160 video endoscope was inserted inserted into the mouth and esophagus intubated without any difficulty and was gradually advanced into the stomach and duodenum and carefully examined. The bulb and second part of the duodenum appeared normal. The scope was then withdrawn into the stomach adequately insufflated with air and upon careful examination the antrum had scattered erosions consistent with gastritis and biopsies were done from this area. The body, cardia and fundus appeared normal. The scope was then withdrawn into the esophagus. The GE junction was located at 40 cm to the incisors. It appeared regular with no erythema erosions or ulcerations. Rest of the esophagus appeared normal. Patient tolerated the procedure well. At this time the patient continued to remain sedation. Initial digital rectal examination was normal. Olympus CF 160 video colonoscope was then inserted into the rectum and gradually advanced to the cecum without any difficulty. Careful examination was performed as the scope was gradually being withdrawn. The prep was excellent. The cecum, ascending colon, transverse colon, descending colon, sigmoid colon and rectum appeared normal. Retroflexion was performed in the rectum and no lesions were noted. Patient tolerated the procedure well. Impression: 1.Upper endoscopy revealed antral erosive gastritis but no evidence of peptic ulcer disease 2.Colonoscopy revealed scattered sigmoid diverticulosis but no evidence of colitis or colorectal neoplasia Recommendations: Findings of this examination were discussed with the patient. She will be started on a regular diet. She will continue with osmotic laxatives as needed for the constipation and she can be discharged home today with outpatient follow -up in 3-4 weeks
[2018-01-06] MEDS ORDERED: PROPOFOL 10 MG/ML 20 ML VIAL IV ONE (13:28)
[2018-01-06 15:49] VITALS: BP 135/80; PULSE 73
== END 2018-01-06 16:01 | disposition home health service (06) | DRG 392 ==
LOC: EC 11:52 → 4MS4W 16:01
PROVIDERS: ADMIT Family Medicine; ATTEND Family Medicine
PROC: 0DB78ZX Excision of Stomach, Pylorus, Via Natural or Artificial Opening Endoscopic, Diagnostic (ICD-10-PCS; principal; 2018-01-06 07:55)
DX: K29.50 Unspecified chronic gastritis without bleeding (principal); E87.1 Hypo-osmolality and hyponatremia; E86.0 Dehydration; J84.10 Pulmonary fibrosis, unspecified; M41.9 Scoliosis, unspecified; K29.60 Other gastritis without bleeding; K57.30 Diverticulosis of large intestine without perforation or abscess without bleeding; K59.00 Constipation, unspecified; K21.9 Gastro-esophageal reflux disease without esophagitis; E78.5 Hyperlipidemia, unspecified; I10 Essential (primary) hypertension; M19.91 Primary osteoarthritis, unspecified site; H35.3110 Nonexudative age-related macular degeneration, right eye, stage unspecified; R74.8 Abnormal levels of other serum enzymes; R74.0 Nonspecific elevation of levels of transaminase and lactic acid dehydrogenase [LDH]; H35.3220 Exudative age-related macular degeneration, left eye, stage unspecified; Z79.82 Long term (current) use of aspirin; Z79.899 Other long term (current) drug therapy; Z86.73 Personal history of transient ischemic attack (TIA), and cerebral infarction without residual deficits; Z96.653 Presence of artificial knee joint, bilateral; Z96.698 Presence of other orthopedic joint implants; Z98.1 Arthrodesis status; Z86.59 Personal history of other mental and behavioral disorders; Z88.1 Allergy status to other antibiotic agents; Z88.2 Allergy status to sulfonamides; Z88.8 Allergy status to other drugs, medicaments and biological substances
CPT/HCPCS: 36415; 43239; 45378; 74018; 80053; 81001; 82150; 83690; 84484; 85025; 87086; 88305; 88342; 96361; 96374; 96375; 99285

== ENCOUNTER 2018-03-04 14:07 | Inpatient (IN) | payer MEDICARE, BC ==
[2018-03-04] MEDS ORDERED: SODIUM CHLORIDE 0.9% 1,000 ML IV STA ×2 (14:47)
[2018-03-04] MEDS ORDERED: ONDANSETRON 4 MG/2 ML VIAL IVP STA (14:47)
[2018-03-04 15:25] LABS: Basophils % (A) 0 %; Eosinophils # (A) 0.1 k/uL (0-0.7); Eosinophils % (A) 1 %; HGB 12.7 gm/dL (11.4-16.0); Lymphocytes % (A) 16 %; MCH 32.3 pg (25.0-35.0); MCHC 34.4 g/dL (31.0-37.0); MCV 93.6 fL (80.0-100.0); Mean Platelet Volume 6.6; Monocytes # (A) 0.5 k/uL (0-1.0); Monocytes % (A) 8 %; Neutrophils # (A) 4.6 k/uL (1.3-7.7); Neutrophils % (A) 74 %; Platelet Count 265 k/uL (150-450); RBC 3.95 m/uL (3.80-5.40); RDW 12.2 % (11.5-15.5); WBC 6.3 k/uL (3.8-10.6)
[2018-03-04] MEDS ORDERED: MORPHINE SULFATE 2 MG/ML SYRINGE IVP ONE (15:25)
[2018-03-04 15:33] LABS: Appearance,Urine Cloudy (Clear); Bilirubin,Urine Negative (Negative); Blood,Urine Negative (Negative); Color,Urine Yellow; Glucose,Urine (UA) Negative (Negative); Hyaline Casts,Urine 13 /lpf (0-2); Ketones,Urine Negative (Negative); Leukocyte Esterase,Urine Large (Negative); Mucus,Urine Rare /hpf; Nitrite,Urine Negative (Negative); PH, Urine 7.5 (5.0-8.0); Protein,Urine Negative (Negative); RBC,Urine 6 /hpf (0-5); Specific Gravity,Urine 1.013 (1.001-1.035); Squamous Epithelial Cell,Urine 1 /hpf (0-4); Urobilinogen,Urine <2.0 mg/dL (<2.0); WBC,Urine 25 /hpf (0-5)
[2018-03-04 15:40] LABS: Albumin 4.3 g/dL (3.5-5.0); Calcium 10.3 mg/dL (8.4-10.2); Potassium 4.4 mmol/L (3.5-5.1); Total Bilirubin 0.2 mg/dL (0.2-1.3); Total Protein 7.2 g/dL (6.3-8.2)
--- NOTE | 2018-03-04 15:48 | XR ---
Abdomen HISTORY: Lower abdominal pain Frontal view of the abdomen submitted and correlated to prior exam 01/03/2018 The heart is enlarged. Multiple calcifications in the pelvis are likely vascular. There is no evident bowel obstruction or pneumoperitoneum. Postop change noted to the lumbar spine. Vertebral plasty bebo nge present at the lower thoracic spine as on prior exam. Laminectomies noted at the lower lumbar spi ne, there are fusion changes. IMPRESSION: Nonobstructive bowel gas pattern. Postop changes. Cardiomegaly.
--- NOTE | 2018-03-04 15:51 | ED ---
Abdominal Pain HPI - General Source: patient, RN notes reviewed, old records reviewed Mode of arrival: ambulatory Limitations: no limitations <Belinda Cruz - Last Filed: 03/04/18 18:16> <Geraldine Celeste - Last Filed: 03/04/18 19:12> - General Chief Complaint: Abdominal Pain Stated Complaint: Abd Pain Time Seen by Provider: 03/04/18 14:36 - History of Present Illness Initial Comments: This Patient is an 88-year-old female presents emergency department today with chief complaint of lower abdominal pain and pressure. Patient states she feels that she is very full. Patients that she did have 3 small bowel movements today before liquidy. She was recently admitted for severe constipation. Patient states that after her last admission she was taking prune juice and MiraLAX. Patient states that she's been having normal bowel movements. Patient states that she has had no fever reported felt chilled occasionally. She states that she has had no vomiting episodes but does feel nauseated. She reports the pain does radiate towards her back. (Belinda Cruz) - Related Data Home Medications Medication Instructions Recorded Confirmed Aspirin 81 mg PO DAILY 12/15/13 03/04/18 Hydrochlorothiazide [Hydrodiuril] 25 mg PO DAILY 12/15/13 03/04/18 Losartan Potassium [Cozaar] 100 mg PO DAILY 12/15/13 03/04/18 Metoprolol Succinate [Toprol XL] 50 mg PO AC-BRKFST 12/15/13 03/04/18 Simvastatin [Zocor] 40 mg PO HS 12/15/13 03/04/18 Temazepam [Restoril] 30 mg PO HS 12/15/13 03/04/18 Vit C/E/Zn/Coppr/Lutein/Zeaxan 1 cap PO DAILY 12/25/17 03/04/18 [Preservision Areds 2 Softgel] Nitrofurantoin Monohyd/M-Cryst 100 mg PO BID 03/04/18 03/04/18 [Macrobid] Previous Rx's Medication Instructions Recorded Polyethylene Glycol 3350 [Miralax] 17 gm PO DAILY #30 powd.pack 12/27/17 Allergies Allergy/AdvReac Type Severity Reaction Status Date / Time dexamethasone [From Decadron] Allergy Itching Verified 03/04/18 14:26 dexamethasone sod phosphate Allergy Itching Verified 03/04/18 14:26 [From Decadron] diclofenac [From Voltaren] Allergy Unknown Verified 03/04/18 14:26 hydroxyzine HCl [From Atarax] Allergy Itching Verified 03/04/18 14:26 ibuprofen [From Motrin] Allergy Itching Verified 03/04/18 14:26 lisinopril Allergy Itching Verified 03/04/18 14:26 Sulfa (Sulfonamide Allergy Itching Verified 03/04/18 14:26 Antibiotics) nitrofurantoin AdvReac "DOES NOT Verified 03/04/18 14:26 WORK" Review of Systems ROS Other: All systems not noted in ROS Statement are negative. <Belinda Cruz - Last Filed: 03/04/18 18:16> ROS Other: All systems not noted in ROS Statement are negative. <Geraldine Celeste - Last Filed: 03/04/18 19:12> ROS Statement: Those systems with pertinent positive or pertinent negative responses have been documented in the HPI. Past Medical History Past Medical History: CVA/TIA, Eye Disorder, Hyperlipidemia, Hypertension, Musculoskeletal Disorder, Osteoarthritis (OA) Additional Past Medical History / Comment(s): macular degeneration, wet left, dry right, scoliosis, arthritis, Tia 1988 History of Any Multi-Drug Resistant Organisms: None Reported Past Surgical History: Back Surgery, Joint Replacement Additional Past Surgical History / Comment(s): Total left knee, partial right knee, right great toe implant, multiple cervical and lumbar fusions, kyphoplasty , eye injection Past Anesthesia/Blood Transfusion Reactions: No Reported Reaction Past Psychological History: Anxiety Smoking Status: Never smoker Past Alcohol Use History: None Reported Past Drug Use History: None Reported <Belinda Cruz - Last Filed: 03/04/18 18:16> General Exam Limitations: no limitations General appearance: alert, in no apparent distress Head exam: Present: atraumatic, normocephalic, normal inspection Eye exam: Present: normal appearance, PERRL, EOMI. Absent: scleral icterus, conjunctival injection, periorbital swelling ENT exam: Present: normal exam, mucous membranes moist Neck exam: Present: normal inspection. Absent: tenderness, meningismus, lymphadenopathy Respiratory exam: Present: normal lung sounds bilaterally. Absent: respiratory distress, wheezes, rales, rhonchi, stridor Cardiovascular Exam: Present: regular rate, normal rhythm, normal heart sounds. Absent: systolic murmur, diastolic murmur, rubs, gallop, clicks GI/Abdominal exam: Present: soft, tenderness (Lower quadrant suprapubic tenderness.), normal bowel sounds. Absent: distended, guarding, rebound, rigid Extremities exam: Present: normal inspection, full ROM, normal capillary refill. Absent: tenderness, pedal edema, joint swelling, calf tenderness Back exam: Present: normal inspection Neurological exam: Present: alert, oriented X3, CN II-XII intact Psychiatric exam: Present: normal affect, normal mood Skin exam: Present: warm, dry, intact, normal color. Absent: rash <Belinda Cruz - Last Filed: 03/04/18 18:16> <Geraldine Celeste - Last Filed: 03/04/18 19:12> - General Exam Comments Initial Comments: 88-year-old female. Alert and oriented. Does not appear to be in any significant distress. She does state that her pain is a 10 out of 10. ( Belinda Cruz) Vital Signs 03/04/18 03/04/18 03/04/18 14:14 16:11 17:15 Temperature 97.9 F Pulse Rate 62 65 67 Respiratory 18 18 18 Rate Blood Pressure 162/88 174/72 165/74 O2 Sat by Pulse 99 100 98 Oximetry Medical Decision Making - Lab Data Result diagrams: 03/04/18 15:04 03/04/18 15:04 - Radiology Data Radiology results: report reviewed <Belinda Cruz - Last Filed: 03/04/18 18:16> - Lab Data Result diagrams: 03/04/18 15:04 03/04/18 15:04 <Geraldine Celeste - Last Filed: 03/04/18 19:12> - Medical Decision Making Patient 88-year-old female presents with nausea, lower abdominal pain and back pain. Patient isn't having symptoms in the past 2 days. Torsion is likely stools. This time Patient has some tenderness or lower quadrant. She denies any recent fever or chills. Patient's labwork does have evidence of hyponatremia. She is given IV fluids. White blood cell count is within normal limits. Just have some mildly pancreatic enzymes. Given tenderness. Also minor urinary tract infection. Urine culture obtained. Patient was given 1 g Rocephin at this time. Patient's given fluid boluses. With the pancreatic enzyme elevation we did do a CT. There is evidence of some irritation over the head of the pancreas. Recommended all up with cancer CA-19-9. That was completed. Patient will be admitted this time for observation for pancreatitis , hyponatremia and enteritis. (Belinda Cruz) Patient was seen and evaluated independently of the PA. Patient is an elderly female history of pancreatitis presenting with abdominal pain, decreased by mouth intake. Labs revealed a elevated lipase as well as a urinary tract infection and hyponatremia. The multiple comorbidities and advanced age I do feel the patient warrants observation in the hospital for further management. Patient care was discussed with Dr. Swann the medicine team who agrees, he will evaluate the patient (Geraldine Celeste) - Lab Data Lab Results 03/04/18 03/04/18 03/04/18 Range/Units 15:04 15:04 15:04 WBC 6.3 (3.8-10.6) k/uL RBC 3.95 (3.80-5.40) m/uL Hgb 12.7 (11.4-16.0) gm/dL Hct 37.0 (34.0-46.0) % MCV 93.6 (80.0-100.0) fL MCH 32.3 (25.0-35.0) pg MCHC 34.4 (31.0-37.0) g/dL RDW 12.2 (11.5-15.5) % Plt Count 265 (150-450) k/uL Neutrophils % 74 % Lymphocytes % 16 % Monocytes % 8 % Eosinophils % 1 % Basophils % 0 % Neutrophils # 4.6 (1.3-7.7) k/uL Lymphocytes # 1.0 (1.0-4.8) k/uL Monocytes # 0.5 (0-1.0) k/uL Eosinophils # 0.1 (0-0.7) k/uL Basophils # 0.0 (0-0.2) k/uL APTT 22.3 (22.0-30.0) sec Sodium 127 L (137-145) mmol/L Potassium 4.4 (3.5-5.1) mmol/L Chloride 87 L (98-107) mmol/L Carbon Dioxide 30 (22-30) mmol/L Anion Gap 10 mmol/L BUN 25 H (7-17) mg/dL Creatinine 1.00 (0.52-1.04) mg/dL Est GFR (CKD-EPI)AfAm 58 (>60 ml/min/1.73 sqM) Est GFR (CKD-EPI)NonAf 50 (>60 ml/min/1.73 sqM) Glucose 109 H (74-99) mg/dL Calcium 10.3 H (8.4-10.2) mg/dL Total Bilirubin 0.2 (0.2-1.3) mg/dL AST 51 H (14-36) U/L ALT 43 (9-52) U/L Alkaline Phosphatase 98 (38-126) U/L Total Protein 7.2 (6.3-8.2) g/dL Albumin 4.3 (3.5-5.0) g/dL Amylase 144 H (30-110) U/L Lipase 476 H (23-300) U/L Urine Color Urine Appearance (Clear) Urine pH (5.0-8.0) Ur Specific [place] (1.001-1.035) Urine Protein (Negative) Urine Glucose (UA) (Negative) Urine Ketones (Negative) Urine Blood (Negative) Urine Nitrite (Negative) Urine Bilirubin (Negative) Urine Urobilinogen (<2.0) mg/dL Ur Leukocyte Esterase (Negative) Urine RBC (0-5) /hpf Urine WBC (0-5) /hpf Ur Squamous Epith Cells (0-4) /hpf Hyaline Casts (0-2) /lpf Urine Mucus (None) /hpf 03/04/18 Range/Units 15:04 WBC (3.8-10.6) k/uL RBC (3.80-5.40) m/uL Hgb (11.4-16.0) gm/dL Hct (34.0-46.0) % MCV (80.0-100.0) fL MCH (25.0-35.0) pg MCHC (31.0-37.0) g/dL RDW (11.5-15.5) % Plt Count (150-450) k/uL Neutrophils % % Lymphocytes % % Monocytes % % Eosinophils % % Basophils % % Neutrophils # (1.3-7.7) k/uL Lymphocytes # (1.0-4.8) k/uL Monocytes # (0-1.0) k/uL Eosinophils # (0-0.7) k/uL Basophils # (0-0.2) k/uL APTT (22.0-30.0) sec Sodium (137-145) mmol/L Potassium (3.5-5.1) mmol/L Chloride (98-107) mmol/L Carbon Dioxide (22-30) mmol/L Anion Gap mmol/L BUN (7-17) mg/dL Creatinine (0.52-1.04) mg/dL Est GFR (CKD-EPI)AfAm (>60 ml/min/1.73 sqM) Est GFR (CKD-EPI)NonAf (>60 ml/min/1.73 sqM) Glucose (74-99) mg/dL Calcium (8.4-10.2) mg/dL Total Bilirubin (0.2-1.3) mg/dL AST (14-36) U/L ALT (9-52) U/L Alkaline Phosphatase (38-126) U/L Total Protein (6.3-8.2) g/dL Albumin (3.5-5.0) g/dL Amylase (30-110) U/L Lipase (23-300) U/L Urine Color Yellow Urine Appearance Cloudy H (Clear) Urine pH 7.5 (5.0-8.0) Ur Specific [place] 1.013 (1.001-1.035) Urine Protein Negative (Negative) Urine Glucose (UA) Negative (Negative) Urine Ketones Negative (Negative) Urine Blood Negative (Negative) Urine Nitrite Negative (Negative) Urine Bilirubin Negative (Negative) Urine Urobilinogen <2.0 (<2.0) mg/dL Ur Leukocyte Esterase Large H (Negative) Urine RBC 6 H (0-5) /hpf Urine WBC 25 H (0-5) /hpf Ur Squamous Epith Cells 1 (0-4) /hpf Hyaline Casts 13 H (0-2) /lpf Urine Mucus Rare H (None) /hpf - Radiology Data Instructed bowel gas pattern. Evidence of postop changes. Evidence of cardiomegaly. Prominent fluid-filled bowel loops hanging in the lower pelvis correlate for enteritis. Focal ectasia of the main pancreatic duct at the level of the pancreatic neck. From 216. No masses and fed. Correlate with seen 19 9 or other tumor markers. Postinflammatory ductal ectasia as possible as well. 6 month follow-up recommended. There is evidence of sigmoid diverticulosis. (Belinda Cruz) Disposition Is patient prescribed a controlled substance at d/c from ED?: No When asked, does pt state using other controlled substances?: No If prescribed controlled substance>3 days was MAPS reviewed?: No If opioid is for acute pain is fill amount 7 days or less?: No If Rx opioid, was Start Talking consent form obtained?: No Time of Disposition: 18:19 <Belinda Cruz - Last Filed: 03/04/18 18:16> <Geraldine Celeste - Last Filed: 03/04/18 19:12> Clinical Impression: Hyponatremia, UTI (urinary tract infection), Elevated amylase and lipase Disposition: ADMITTED IP TO THIS HOSP Condition: Stable
--- NOTE | 2018-03-04 16:54 | CT ---
EXAMINATION TYPE: CT abdomen pelvis w con DATE OF EXAM: 03/04/2018 COMPARISON: 12/25/2017 and 07/04/2016 HISTORY: 88-year-old female with abdominal pain and pressure TECHNIQUE: Contiguous axial scanning of the abdomen and pelvis following administration of 80 ml Isov ue 300 IV contrast. Delayed images through the kidneys and coronal/sagittal reconstructions performe d. CT DLP: 515.8 mGycm Automated exposure control for dose reduction was used. FINDINGS: Heart borderline enlarged without pericardial effusion. Tiny hiatal hernia. Some strandy atelectasis lower lungs. Mild emphysematous change. Ectatic lower descending thoracic aorta at 2.7 cm. No focal liver lesion Some focal ectasia of the main pancreatic duct at 4 mm at the level of the pancreatic neck and distal body without any focal mass identified. This seems to have been present on 12/25/2017 but new from . No biliary ductal dilatation. Portal venous system is patent. Moderate atherosclerotic calcifications throughout the abdominal aorta and iliac arteries without ane urysm. 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 1.8 cm cyst lower pole right kidney. Gallbladder, adrenal glands and spleen appear within normal limits. No dilated small bowel, free fluid, or free air. No significant stool burden. Sigmoid diverticulosis. No pericolonic inflammatory change. No mesenteric or retroperitoneal lymphadenopathy identified. Some prominent fluid-filled small bowel loops having low in the pelvis could represent a regional iri tis. Bladder is urine distended. Uterus surgically absent. Multiple pelvic phlebolith. No abnormal fluid c ollection in the pelvis or pelvic lymphadenopathy seen. Bones: Diffuse osteopenia. Bone harvesting sites along the posterior iliac bones with laminectomy bebo nges in the lumbar spine. Anterior wedging of T11 is stable back to 2010. Advanced degenerative disc disease with grade 1 anterolisthesis at L3-L4 stable from 12/25/2017, increased from 07/04/2016. IMPRESSION: 1. SOME PROMINENT FLUID FILLED SMALL BOWEL LOOPS HANGING LOW IN THE PELVIS. CORRELATE FOR REGIONAL EN TERITIS. 2. 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 NO DISCRETE MASS IS IDENTIFIED. CORRELATE WITH CA-19-9 AND OTHER TUMOR MARKERS A PRECAUTIONARY MEASURE. IPMN OR POSTINFLAMMATORY DUCTAL ECTASIA ARE POSSIBLE WELL. 6 MONTH FOLLOW-UP CAN BE PERF ORMED. 3. SIGMOID DIVERTICULOSIS.
[2018-03-04] MEDS ORDERED: cefTRIAXone IN SWFI 1,000 MG/10 ML SYRINGE IVP STA (17:45)
[2018-03-04] MEDS ORDERED: MORPHINE SULFATE 4 MG/ML SYRINGE IVP STA (17:45)
[2018-03-04] MEDS ORDERED: POLYETHYLENE GLYCOL 3350 17 GM POWD.PACK PO PRN (17:57)
[2018-03-04] MEDS ORDERED: MORPHINE SULFATE 4 MG/ML SYRINGE IV PRN (18:20)
[2018-03-04] MEDS ORDERED: NALOXONE 0.4 MG/ML 1 ML VIAL IV PRN (18:20)
[2018-03-04] MEDS ORDERED: ACETAMINOPHEN TAB 325 MG TAB PO PRN ×2 (18:20→18:21)
[2018-03-04] MEDS ORDERED: IBUPROFEN 400 MG TAB PO PRN (18:20)
--- NOTE | 2018-03-04 18:25 | P.HPIM ---
History of Present Illness 88-year-old female presents emergency department today with chief complaint of lower abdominal pain and pressure, 10/10 in severity Patient states she feels that she is very full. Patients that she did have 3 small bowel movements today which are liquidy. She was recently admitted for severe constipation. Patient states that after her last admission she was taking prune juice and MiraLAX. Patient states that she's been having normal bowel movements. Patient states that she has had no fever reported cell chilled occasionally. She states that she has had no vomiting episodes but does feel nauseated. Patient abdominal CAT scan which showed changes consistent with enteritis, patient denied any fever chills body aches. Patient denied dysuria suprapubic pain although patient does have bilateral lower abdominal pain secondary to cramping from diarrhea. Patient is found to be hyponatremic because of which patient is being admitted for IV fluids. Patient is pretty much ablate 3 memory is a very good. Patient is a very functional 89-year-old female. Patient denied any cough runny nose. Patient has similar symptoms during last hospitalization at the time patient was constipated was also hyponatremic secondary to hydrochlorothiazide which will risk and urine now. Patient has minimal nonspecific elevation of lipase not consistent with pancreatitis. Review of Systems REVIEW OF SYSTEMS: CONSTITUTIONAL: No fever, no malaise, no fatigue. HEENT: No recent visual problems or hearing problems. Denied any sore throat. CARDIOVASCULAR: No chest pain, orthopnea, PND, no palpitations, no syncope. PULMONARY: No shortness of breath, no cough, no hemoptysis. GASTROINTESTINAL: As mentioned in HPI NEUROLOGICAL: No headaches, no weakness, no numbness. HEMATOLOGICAL: Denies any bleeding or petechiae. GENITOURINARY: Denies any burning micturition, frequency, or urgency. MUSCULOSKELETAL/RHEUMATOLOGICAL: Denies any joint pain, swelling, or any muscle pain. ENDOCRINE: Denies any polyuria or polydipsia. The rest of the 14-point review of systems is negative. Past Medical History Past Medical History: CVA/TIA, Eye Disorder, Hyperlipidemia, Hypertension, Musculoskeletal Disorder, Osteoarthritis (OA) Additional Past Medical History / Comment(s): macular degeneration, wet left, dry right, scoliosis, arthritis, Tia 1987 History of Any Multi-Drug Resistant Organisms: None Reported Past Surgical History: Back Surgery, Joint Replacement Additional Past Surgical History / Comment(s): Total left knee, partial right knee, right great toe implant, multiple cervical and lumbar fusions, kyphoplasty , eye injection Past Anesthesia/Blood Transfusion Reactions: No Reported Reaction Past Psychological History: Anxiety Smoking Status: Never smoker Past Alcohol Use History: None Reported Past Drug Use History: None Reported Medications and Allergies Home Medications Medication Instructions Recorded Confirmed Type Aspirin 81 mg PO DAILY 12/15/13 03/04/18 History Hydrochlorothiazide [Hydrodiuril] 25 mg PO DAILY 12/15/13 03/04/18 History Losartan Potassium [Cozaar] 100 mg PO DAILY 12/15/13 03/04/18 History Metoprolol Succinate [Toprol XL] 50 mg PO AC-BRKFST 12/15/13 03/04/18 History Simvastatin [Zocor] 40 mg PO HS 12/15/13 03/04/18 History Temazepam [Restoril] 30 mg PO HS 12/15/13 03/04/18 History Vit C/E/Zn/Coppr/Lutein/Zeaxan 1 cap PO DAILY 12/25/17 03/04/18 History [Preservision Areds 2 Softgel] Polyethylene Glycol 3350 [Miralax] 17 gm PO DAILY #30 powd.pack 12/27/17 Rx Nitrofurantoin Monohyd/M-Cryst 100 mg PO BID 03/04/18 03/04/18 History [Macrobid] Allergies Allergy/AdvReac Type Severity Reaction Status Date / Time dexamethasone [From Decadron] Allergy Itching Verified 03/04/18 14:26 dexamethasone sod phosphate Allergy Itching Verified 03/04/18 14:26 [From Decadron] diclofenac [From Voltaren] Allergy Unknown Verified 03/04/18 14:26 hydroxyzine HCl [From Atarax] Allergy Itching Verified 03/04/18 14:26 ibuprofen [From Motrin] Allergy Itching Verified 03/04/18 14:26 lisinopril Allergy Itching Verified 03/04/18 14:26 Sulfa (Sulfonamide Allergy Itching Verified 03/04/18 14:26 Antibiotics) nitrofurantoin AdvReac "DOES NOT Verified 03/04/18 14:26 WORK" Physical Exam Vitals: Vital Signs Temp Pulse Resp BP Pulse Ox 03/04/18 17:15 67 18 165/74 98 03/04/18 16:11 65 18 174/72 100 03/04/18 14:14 97.9 F 62 18 162/88 99 Intake and Output 03/04/18 03/04/18 03/04/18 06:59 14:59 22:59 Other: Weight 67.5 kg PHYSICAL EXAMINATION: GENERAL: The patient is alert and oriented x3, not in any acute distress. Well developed, well nourished. HEENT: Pupils are round and equally reacting to light. EOMI. No scleral icterus. No conjunctival pallor. Normocephalic, atraumatic. No pharyngeal erythema. No thyromegaly. CARDIOVASCULAR: S1 and S2 present. No murmurs, rubs, or gallops. PULMONARY: Chest is clear to auscultation, no wheezing or crackles. ABDOMEN: Soft, nontender, nondistended, normoactive bowel sounds. No palpable organomegaly. MUSCULOSKELETAL: No joint swelling or deformity. EXTREMITIES: No cyanosis, clubbing, or pedal edema. NEUROLOGICAL: Gross neurological examination did not reveal any focal deficits. SKIN: No rashes. Results CBC & Chem 7: 03/04/18 15:04 03/04/18 15:04 Labs: Abnormal Lab Results - Last 24 Hours (Table) 03/04/18 03/04/18 Range/Units 15:04 15:04 Sodium 127 L (137-145) mmol/L Chloride 87 L (98-107) mmol/L BUN 25 H (7-17) mg/dL Glucose 109 H (74-99) mg/dL Calcium 10.3 H (8.4-10.2) mg/dL AST 51 H (14-36) U/L Amylase 144 H (30-110) U/L Lipase 476 H (23-300) U/L Urine Appearance Cloudy H (Clear) Ur Leukocyte Esterase Large H (Negative) Urine RBC 6 H (0-5) /hpf Urine WBC 25 H (0-5) /hpf Hyaline Casts 13 H (0-2) /lpf Urine Mucus Rare H (None) /hpf Assessment and Plan Plan: -Abdominal pain probably related to gastroenteritis, patient does not have any pancreatitis patient was started on IV fluids -hyponatremia secondary to diarrhea along with hydrochlorothiazide had a good thiazide will be this can urine patient was started on IV fluids patient blood pressures are expected to be higher -Mild nonspecific elevation of lipase. -Chronic constipation presently not a problem -Hyperlipidemia -Osteoarthritis primary -Hypertension Cozaar will be continued and metoprolol will be continued. -Insomnia is related I tried to order melatonin which I am unable to hold off on benzodiazepine same thing was discussed with the patient.
[2018-03-04] MEDS: SODIUM CHLORIDE 0.9% 1,000 ML IV SCH (19:13)
[2018-03-04] MEDS: ATORVASTATIN 20 MG TAB PO SCH (20:14)
[2018-03-04] MEDS: ONDANSETRON 4 MG/2 ML VIAL IVP PRN (21:29)
[2018-03-04] MEDS: KETOROLAC 30 MG/ML 1 ML VIAL IVP PRN (21:29)
[2018-03-04] MEDS ORDERED: MORPHINE SULFATE 4 MG/ML SYRINGE ONE (23:04)
[2018-03-05] MEDS ORDERED: MORPHINE SULFATE 4 MG/ML SYRINGE ONE (02:55)
[2018-03-05] MEDS: SODIUM CHLORIDE 0.9% 1,000 ML IV SCH ×3 (05:08→16:27)
[2018-03-05 05:17] VITALS: RESP 16
[2018-03-05] MEDS: ONDANSETRON 4 MG/2 ML VIAL IVP PRN ×2 (05:36→16:26)
[2018-03-05] MEDS: KETOROLAC 30 MG/ML 1 ML VIAL IVP PRN (05:36)
[2018-03-05 07:23] LABS: Calcium 9.7 mg/dL (8.4-10.2); Potassium 3.9 mmol/L (3.5-5.1)
[2018-03-05] MEDS: LOSARTAN 50 MG TAB PO SCH (08:49)
[2018-03-05] MEDS: ASPIRIN 81 MG PO SCH (08:50)
[2018-03-05] MEDS: METOPROLOL SUCCINATE (ER) 50 MG TAB.ER.24H PO SCH (08:50)
[2018-03-05] MEDS: PANTOPRAZOLE 40 MG/10 ML VIAL IV SCH (08:50)
[2018-03-05] MEDS ORDERED: SIMETHICONE 80 MG CHEWABLE PO PRN (09:37)
--- NOTE | 2018-03-05 10:01 | P.PN ---
Subjective 88-year-old the female came in with abdominal pain which was believed secondary to either gastroenteritis or a bowel spasms from my constipation medications. Patient denied any bowel movement today. Patient is requesting to see Dr. Becker will be canceled patient is still concerned about abdominal pain patient was having nausea and dry heaving today because of the to an assays that he was receiving these will be discontinued. Morphine will discuss reviewed as well will use Tylenol for pain. Patient objective to clinical signs are not consistent with her symptoms. Patient's abdomen is quite soft. We'll get the social media marketing specialist assess her home situation. Constitutional: Denied any fatigue denied any fever. Cardio vascular: denied any chest pain, palpitations Gastrointestinal as mentioned in HPI Pulmonary: Denied any shortness of breath cough Neurologic denied any new focal deficits Objective - Vital Signs Vital signs: Vital Signs Temp 98.0 F 03/05/18 05:16 Pulse 80 03/05/18 05:16 Resp 16 03/05/18 05:16 BP 134/64 03/05/18 05:16 Pulse Ox 100 03/05/18 05:16 Intake & Output 03/04/18 03/05/18 03/05/18 18:59 06:59 18:59 Intake Total 240 Balance 240 Weight 67.5 kg Intake: Intake, IV Titration 240 Amount Sodium Chloride 0.9% 1, 240 000 ml @ 120 mls/hr IV . Q8H20M [facility] Rx#:[id number] Other: # Voids 2 - Exam PHYSICAL EXAMINATION: GENERAL: The patient is alert and oriented x3, not in any acute distress. Well developed, well nourished. HEENT: Pupils are round and equally reacting to light. EOMI. No scleral icterus. No conjunctival pallor. Normocephalic, atraumatic. No pharyngeal erythema. No thyromegaly. CARDIOVASCULAR: S1 and S2 present. No murmurs, rubs, or gallops. PULMONARY: Chest is clear to auscultation, no wheezing or crackles. ABDOMEN: Soft, nontender, nondistended, normoactive bowel sounds. No palpable organomegaly. MUSCULOSKELETAL: No joint swelling or deformity. EXTREMITIES: No cyanosis, clubbing, or pedal edema. NEUROLOGICAL: Gross neurological examination did not reveal any focal deficits. SKIN: No rashes. - Labs CBC & Chem 7: 03/04/18 15:04 03/05/18 06:28 Labs: Abnormal Lab Results - Last 24 Hours (Table) 03/04/18 03/04/18 03/05/18 Range/Units 15:04 15:04 06:28 Sodium 127 L 130 L (137-145) mmol/L Chloride 87 L 94 L (98-107) mmol/L BUN 25 H 18 H (7-17) mg/dL Glucose 109 H 107 H (74-99) mg/dL Calcium 10.3 H (8.4-10.2) mg/dL AST 51 H (14-36) U/L Amylase 144 H (30-110) U/L Lipase 476 H (23-300) U/L Urine Appearance Cloudy H (Clear) Ur Leukocyte Esterase Large H (Negative) Urine RBC 6 H (0-5) /hpf Urine WBC 25 H (0-5) /hpf Hyaline Casts 13 H (0-2) /lpf Urine Mucus Rare H (None) /hpf Microbiology - Last 24 Hours (Table) 03/04/18 15:04 Urine Culture - Preliminary Urine,Voided Assessment and Plan Plan: -Abdominal pain probably related to gastroenteritis, patient does not have any pancreatitis, continue with IV fluids improved with the IV fluids -hyponatremia secondary to diarrhea along with hydrochlorothiazide, improved hyponatremia can you IV fluids today basic metabolic profile tomorrow -Mild nonspecific elevation of lipase. -Chronic constipation presently not a problem -Hyperlipidemia -Osteoarthritis primary -Hypertension Cozaar will be continued and metoprolol will be continued. -Insomnia is related I tried to order melatonin which I am unable to hold off on benzodiazepine same thing was discussed with the patient.
[2018-03-05] MEDS ORDERED: traMADol 50 MG TAB PO PRN (13:05)
[2018-03-05] MEDS ORDERED: SODIUM CHLORIDE 0.9% 1,000 ML IV ONE (13:06)
[2018-03-05] MEDS: VIT A,C & E-LUTEIN-MINERALS 1 EACH TAB PO SCH (13:22)
[2018-03-05] MEDS ORDERED: BENZOCAINE/MENTHOL LOZENG 1 EACH LOZENGE MUCOUS MEM PRN (20:41)
[2018-03-05] MEDS ORDERED: TEMAZEPAM 30 MG CAP PO SCH (21:00)
[2018-03-05 21:10] VITALS: TEMP 98.2
[2018-03-05] MEDS: ATORVASTATIN 20 MG TAB PO SCH (21:11)
[2018-03-06 05:55] VITALS: BP 138/60; PULSE 73
[2018-03-06] MEDS: SODIUM CHLORIDE 0.9% 1,000 ML IV SCH ×2 (07:31→11:23)
[2018-03-06] MEDS: LOSARTAN 50 MG TAB PO SCH (07:37)
[2018-03-06] MEDS: ASPIRIN 81 MG PO SCH (07:37)
[2018-03-06] MEDS: METOPROLOL SUCCINATE (ER) 50 MG TAB.ER.24H PO SCH (07:37)
[2018-03-06] MEDS: PANTOPRAZOLE 40 MG/10 ML VIAL IV SCH (07:37)
[2018-03-06] MEDS ORDERED: BISACODYL 10 MG SUPP RECTAL STA (10:05)
--- NOTE | 2018-03-06 11:01 | P.DS ---
Providers Date of admission: 03/05/18 16:05 Attending physician: Mervin Swann Consults: 03/05/18 09:45 Consult Physician Routine Consulting Provider: Shawna Becker Consult Reason/Comments: Stomach upset Do you want consulting provider notified?: Yes Primary care physician: Jessica Umanzor [facility] Course: 88-year-old the female came in with abdominal pain which was believed secondary to either gastroenteritis or a bowel spasms from my constipation medications. Patient denied any bowel movement today. Patient is requesting to see Dr. Becker will be canceled patient is still concerned about abdominal pain patient was having nausea and dry heaving today because of the to an assays that he was receiving nonsteroidal anti-inflammatory medications will be discontinued. Morphine will discuss reviewed as well will use Tylenol for pain. Patient objective to clinical signs are not consistent with her symptoms. Patient's abdomen is quite soft. 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 03/06/2018 Her back pain improved abdominal pain improved as well patient the wanted to go home after a bowel movement is requesting suppository which will be provided and patient will be discharged today patient to hyponatremia improved and do not have any basic metabolic profile available from today. Patient was evaluated by gastroenterology. PHYSICAL EXAMINATION: GENERAL: The patient is alert and oriented x3, not in any acute distress. Well developed, well nourished. HEENT: Pupils are round and equally reacting to light. EOMI. No scleral icterus. No conjunctival pallor. Normocephalic, atraumatic. No pharyngeal erythema. No thyromegaly. CARDIOVASCULAR: S1 and S2 present. No murmurs, rubs, or gallops. PULMONARY: Chest is clear to auscultation, no wheezing or crackles. ABDOMEN: Soft, nontender, nondistended, normoactive bowel sounds. No palpable organomegaly. MUSCULOSKELETAL: No joint swelling or deformity. EXTREMITIES: No cyanosis, clubbing, or pedal edema. NEUROLOGICAL: Gross neurological examination did not reveal any focal deficits. SKIN: No rashes. Assessment and Plan Plan: -Abdominal pain probably related to gastroenteritis, patient does not have any pancreatitis, improved hyponatremia with IV fluids, CA-19-9 is within normal limits -hyponatremia secondary to diarrhea along with hydrochlorothiazide, improved hyponatremia -Patient had nausea vomiting yesterday secondary to couple nonsteroidal anti- inflammatory medications she was receiving -Chronic back pain will discharge her on tramadol -Mild nonspecific elevation of lipase. -Chronic constipation presently not a problem -Hyperlipidemia -Osteoarthritis primary -Hypertension Cozaar will be continued and metoprolol will be continued. -Insomnia patient is requesting to go back on benzodiazepine. -Asymptomatic bacteriuria: Will not require any antibiotics Patient Condition at Discharge: Stable Plan - Discharge Summary New Discharge Prescriptions: New traMADol HCl [Ultram] 50 mg PO QID PRN #12 tab PRN Reason: Pain/Discomfort Omeprazole [PriLOSEC] 40 mg PO AC-BRKFST #14 capsule. Continue Metoprolol Succinate [Toprol XL] 50 mg PO AC-BRKFST Losartan Potassium [Cozaar] 100 mg PO DAILY Temazepam [Restoril] 30 mg PO HS Simvastatin [Zocor] 40 mg PO HS Aspirin 81 mg PO DAILY Vit C/E/Zn/Coppr/Lutein/Zeaxan [Preservision Areds 2 Softgel] 1 cap PO DAILY Polyethylene Glycol 3350 [Miralax] 17 gm PO DAILY #30 powd.pack Discontinued Hydrochlorothiazide [Hydrodiuril] 25 mg PO DAILY Nitrofurantoin Monohyd/M-Cryst [Macrobid] 100 mg PO BID Discharge Medication List Aspirin 81 mg PO DAILY 12/15/13 [History] Losartan Potassium [Cozaar] 100 mg PO DAILY 12/15/13 [History] Metoprolol Succinate [Toprol XL] 50 mg PO AC-BRKFST 12/15/13 [History] Simvastatin [Zocor] 40 mg PO HS 12/15/13 [History] Temazepam [Restoril] 30 mg PO HS 12/15/13 [History] Vit C/E/Zn/Coppr/Lutein/Zeaxan [Preservision Areds 2 Softgel] 1 cap PO DAILY 07/04 [History] Polyethylene Glycol 3350 [Miralax] 17 gm PO DAILY #30 powd.pack 12/27/17 [Rx] Omeprazole [PriLOSEC] 40 mg PO AC-BRKFST #14 capsule. 03/06/18 [Rx] traMADol HCl [Ultram] 50 mg PO QID PRN #12 tab 03/06/18 [Rx] Follow up Appointment(s)/Referral(s): Jessica Umanzor DO [Primary Care Provider] - 3 Days (Patient to make own appt, offices closed at time of discharge.) Patient Instructions/Handouts: Omeprazole (By mouth), Tramadol (By mouth), Urinary Tract Infection in Women (DC) Activity/Diet/Wound Care/Special Instructions: Diet: Heart Healthy Activity: As tolerated Discharge Disposition: HOME SELF-CARE
[2018-03-06] MEDS: VIT A,C & E-LUTEIN-MINERALS 1 EACH TAB PO SCH (11:24)
--- NOTE | 2018-03-06 13:33 | CONS ---
CONSULTATION REQUESTING PHYSICIAN: Dr. Swann REASON FOR CONSULTATION: Abdominal pain, constipation, elevated amylase and lipase. HISTORY OF PRESENT ILLNESS: The patient is an 88-year-old pleasant white female admitted to hospital with lower abdominal discomfort, pressure-like sensation with some constipation for the last few days. She was admitted to the hospital in December for similar reason, was started on MiraLAX and was discharged home. She did well for 4 weeks, but for the last 2 weeks she has started having more discomfort in the lower abdominal area despite having bowel movements. She felt some epigastric discomfort with nausea and passive regurgitation and severe heartburn. The symptoms progressively got worse. She came into the emergency room and was noted to have mild elevation of the amylase and lipase and hence, we are consulted during this issue. She did have a CT of the abdomen and pelvis done that was unremarkable and with normal-appearing pancreas. This morning the patient states that she is feeling better. She still has some cramping in the lower abdominal area. No nausea, vomiting. Passive regurgitation is better. PAST MEDICAL HISTORY: Significant for hypertension, hyperlipidemia, degenerative joint disease, osteoarthritis, CVA in the past. PAST SURGICAL HISTORY: Back surgery, joint replacement, multiple cervical and lumbar fusions. MEDICATIONS AT HOME: Include HydroDIURIL, aspirin, Cozaar, Toprol, Zocor, Restoril, vitamin C, MiraLAX, Macrobid. ALLERGIES: To DECADRON, VOLTAREN, ATARAX, MOTRIN, LISINOPRIL, SULFA, NITROFURANTOIN. SOCIAL HISTORY: No smoking or alcohol use. FAMILY HISTORY: Unremarkable. REVIEW OF SYSTEMS: CARDIOPULMONARY: No chest pain, shortness of breath. GENITOURINARY: No dysuria or hematuria. MUSCULOSKELETAL: Unremarkable. SKIN: Unremarkable. ENDOCRINE: Unremarkable. PSYCHIATRIC: Unremarkable. NEUROLOGY: Unremarkable. ENT/VISION: Unremarkable. CONSTITUTIONAL: No recent weight loss. No fever, chills, night sweats. PHYSICAL EXAMINATION: She appears comfortable. No apparent distress. Vital signs are stable. Blood pressure is 91/74, pulse 82, temperature 98.2. HEENT: Examination unremarkable. Conjunctivae pink. Sclerae anicteric. Oral cavity, no lesions. NECK: No JVD. No lymph node enlargement. CHEST: Clear to auscultation. HEART: Regular rate and rhythm. ABDOMEN: Soft, it was nontender, nondistended. Bowel sounds are positive. No organomegaly. EXTREMITIES: No pedal edema. SKIN: No rashes. NEUROLOGIC: Alert and oriented x3. No focal deficits. LAB: Done today: WBC 6.3, hemoglobin 12.7, platelets are normal. Basic metabolic panel is within normal limits. Urinalysis showed large leukocyte esterase. IMPRESSION: 1. This is a lady who presents to the hospital with lower abdominal pain and pressure- like sensation associated with some constipation issues for the last few months. Presently on MiraLAX 1 scoop daily and her bowel movements are much better. 2. Asymptomatic elevation of amylase and lipase which are nonspecific. No clinical evidence of acute pancreatitis. 3. Epigastric pain passively regurgitation, possibly related to gastroesophageal reflux disease. She is presently on Protonix 40 mg daily and is doing much better. RECOMMENDATIONS: 1. Continue current medications. 2. Advised to increase the MiraLAX to 1 scoop twice daily as needed if she has worsening constipation. 3. Continue with Protonix 40 mg daily and follow anti-reflux measures. 4. She can be discharged home today with an outpatient follow up in 3-4 weeks. Thank you for this consultation. MMODL / JANYN: [id number] /
== END 2018-03-06 14:32 | disposition home or self-care (01) | DRG 392 ==
LOC: EC 14:07 → 5MS5E 18:07 → OBSVTOIN 03-05 16:05
PROVIDERS: ADMIT Internal Medicine; ATTEND Internal Medicine
DX: K52.9 Noninfective gastroenteritis and colitis, unspecified (principal); E87.1 Hypo-osmolality and hyponatremia; N39.0 Urinary tract infection, site not specified; K59.09 Other constipation; E78.5 Hyperlipidemia, unspecified; G47.00 Insomnia, unspecified; G89.29 Other chronic pain; I10 Essential (primary) hypertension; M19.90 Unspecified osteoarthritis, unspecified site; M41.9 Scoliosis, unspecified; Z79.82 Long term (current) use of aspirin; Z86.73 Personal history of transient ischemic attack (TIA), and cerebral infarction without residual deficits; Z88.6 Allergy status to analgesic agent; Z88.2 Allergy status to sulfonamides; Z88.8 Allergy status to other drugs, medicaments and biological substances; T50.2X5A Adverse effect of carbonic-anhydrase inhibitors, benzothiadiazides and other diuretics, initial encounter; T39.315A Adverse effect of propionic acid derivatives, initial encounter; M54.9 Dorsalgia, unspecified; Z98.1 Arthrodesis status; F41.9 Anxiety disorder, unspecified; H35.30 Unspecified macular degeneration; Z79.899 Other long term (current) drug therapy
CPT/HCPCS: 36415; 74018; 74177; 80048; 80053; 81001; 82150; 83690; 85025; 85730; 86301; 87077; 87086; 87186; 96361; 96374; 96375; 96376; 99285